=== PATIENT | male | born 1950 | race Caucasian/White ===

== ENCOUNTER 2023-10-23 08:57 | Outpatient (OUT) | payer BC, MEDICARE, SELFPAY ==
--- NOTE | 2023-10-23 09:07 | XR_ITS ---
The [address] [address] Patient Name: YAMINI BRANNON MRN: [id number] date: 1950 Sex: M Assigned Patient Location: LAB Current Patient Location: LAB Accession/Order Number: [id number] Exam Date: 10/23/2023 09:10 Report Date: 10/24/2023 09:10 At the request of: BILL TOLENTINO Procedure: XR shoulder RT min 2V PROCEDURE: XR shoulder RT min 2V COMPARISON: None. HISTORY: Right Pain In Shoulder M25.511 FINDINGS: BONES:No acute fracture or dislocation. Glenohumeral joint space narrowing. Minimal degenerative change with marginal osteophyte formation. Moderate spondylosis of the spine SOFT TISSUES:Negative. No visible soft tissue swelling. EFFUSION:None visible. OTHER: Negative. XR/XR shoulder RT min 2V IMPRESSION: Mild degenerative changes with glenohumeral joint space narrowing Electronically authenticated by: THOMAS MOTT Date: 10/24/2023 09:10
--- NOTE | 2023-10-23 09:08 | US_ITS ---
The [address] [address] Patient Name: YAMINI BRANNON MRN: [id number] date: 1950 Sex: M Assigned Patient Location: LAB Current Patient Location: Accession/Order Number: [id number] Exam Date: 10/23/2023 09:20 Report Date: 10/24/2023 07:46 At the request of: BILL TOLENTINO Procedure: US thyroid EXAMINATION: US thyroid HISTORY: Thyroid Nodule E04.1 COMPARISON: 12/05/2022 TECHNIQUE: Sonographic images of the thyroid gland were obtained. FINDINGS: The right thyroid lobe measures 4.7 x 1.1 x 1.5 cm 2 focal nodules. The isthmus is thickened measuring 6.8 mm, heterogeneous. No focal nodule. The left thyroid lobe measures 5.5 x 2.8 x 2.3 cm. Heterogeneous echotexture with 3 focal nodules. The 2 most suspicious nodules: Nodule 1:1.8 x 1.8 x 1.1 cm. Solid, hypoechoic, wide, ill-defined margins, no calcifications. TR 4 Nodule 2: Left thyroid lobe. 2.4 x 2.3 x 1.6 cm solid, isoechoic, wide, smooth margins, no calcifications. TR 3 US/US thyroid IMPRESSION: Multinodular thyroid gland, stable TI-RADS: The [employer] TI-RADS committee's white paper recommendations for thyroid lesions classified as TR4 (moderately suspicious) are listed below: > 1.0 cm. Follow-up ultrasound in 1, 2, 3, and 5 years. > 1.5 cm. FNA. J. Am Freddy Radiol 2017;14:587-595. Electronically authenticated by: THOMAS MOTT Date: 10/24/2023 07:46
[2023-10-23 09:56] LABS: Anion Gap 10.2; BUN Creatinine Ratio 11.1; Calcium 8.3 mg/dL (8.5-10.1); Carbon Dioxide 30.8 mmol/L (21.0-32.0); Chloride 107 mmol/L (98-107); Chol HDL Ratio 2.8; Cholesterol 145 mg/dL (<=200); Estimated GFR (African America >60 (>=60); Estimated GFR (Non-African Ame >60 (>=60); Glucose 99 mg/dL (74-106); HDL Cholesterol 51 mg/dL (40-60); Sodium 144 mmol/L (136-145); Thyroid Stimulating Hormone 1.262 uIU/mL (0.358-3.740); Triglycerides 70 mg/dL (<=150)
[2023-10-23 10:20] LABS: Prostate Specific Antigen Scrn 0.38 ng/mL (<=4.00)
== END 2023-10-23 08:58 | disposition home or self-care (01) ==
LOC: LAB 08:57
PROVIDERS: PCP Internal Medicine; Visit Provider Internal Medicine
DX: E04.1 Nontoxic single thyroid nodule (principal); M25.511 Pain in right shoulder; E78.00 Pure hypercholesterolemia, unspecified; I10 Essential (primary) hypertension; Z12.5 Encounter for screening for malignant neoplasm of prostate
CPT/HCPCS: 36415; 73030; 76536; 80048; 80061; 84443; G0103

== ENCOUNTER 2024-10-27 07:57 | Outpatient (OUT) | payer OTHER, SELFPAY ==
--- NOTE | 2024-10-27 08:00 | US_ITS ---
The [address] [address] Patient Name: YAMINI BRANNON MRN: [id number] date: 1950 Sex: M Assigned Patient Location: US Current Patient Location: US Accession/Order Number: [id number] Exam Date: 10/27/2024 08:05 Report Date: 10/27/2024 11:14 At the request of: BILL TOLENTINO Procedure: US thyroid EXAMINATION: US thyroid HISTORY: Thyroid Nodule COMPARISON: Ultrasound thyroid 10/23/2023 FINDINGS: RIGHT LOBE: Enlarged heterogeneous containing a 12 mm TR 3 nodule within superior pole and a 5 mm TR 4 nodule within mid body. Lobe size: 5.2 x 1.4 x 1.5 cm LEFT LOBE: Enlarged, heterogeneous containing a 2.4 cm TR 3 nodule within inferior pole. Within the superior pole and mid body is a 1.7 cm and a 1.6 cm benign-appearing TR 2 nodule. Lobe size: 6.8 x 2.8 x 2.0 cm ISTHMUS: Heterogeneous and abnormally thickened. Thickness: 8 mm US/US thyroid IMPRESSION: 1. Enlarged slightly heterogeneous thyroid gland; nonspecific. 2. Stable TR 3 and TR 2 nodules bilaterally. Consider follow-up imaging in 1 year. TR3 (mildly suspicious): > 1.5 cm, follow-up ultrasound in 1, 3, and 5 years. > 2.5 cm, fine needle aspiration. TI-RADS 2: Benign nodules. Noticeably benign pattern (0% risk of malignancy) Electronically authenticated by: ERIS CHAPMAN Date: 10/27/2024 11:14
[2024-10-27 09:20] LABS: Basophils Absolute Auto 0.1 10^3/uL (0.0-0.1); Basophils Percent Auto 0.9 % (0.2-2.0); Eosinophils Absolute Auto 0.2 10^3/uL (0.0-0.7); Eosinophils Percent Auto 3.1 % (0.9-7.0); Hematocrit 47.5 % (42.0-54.0); Hemoglobin 16.1 g/dL (14.0-18.0); Immature Granulocytes Abs Auto 0.01 10^3/uL (0.00-0.03); Immature Granulocytes Pct Auto 0.2 % (0.0-0.5); Lymphocytes Absolute Auto 1.4 10^3/uL (1.2-3.8); Lymphocytes Percent Auto 24.5 % (20.5-60.0); Mean Corpuscular HGB Conc 33.9 g/dL (29.9-35.2); Mean Corpuscular Hemoglobin 30.4 pg (25.9-34.0); Mean Corpuscular Volume 89.6 fL (80.0-94.0); Mean Platelet Volume 9.9 fL (9.5-13.5); Monocytes Absolute Auto 0.4 10^3/uL (0.3-0.8); Monocytes Percent Auto 7.1 % (1.7-12.0); Neutrophils Absolute Auto 3.7 10^3/uL (1.4-6.5); Neutrophils Percent Auto 64.2 % (43.0-75.0); Platelet Count 198 10^3/uL (150-450); White Blood Count 5.8 10^3/uL (4.0-11.0)
[2024-10-27 10:51] LABS: Alanine Aminotransferase 20 U/L (16-63); Albumin Globulin Ratio 1.1; Albumin Level 3.5 g/dL (3.4-5.0); Alkaline Phosphatase 95 U/L (46-116); Anion Gap 12.7; Aspartate Amino Transferase 12 U/L (15-37); BUN Creatinine Ratio 10.9; Bilirubin Total 0.9 mg/dL (0.2-1.0); Calcium 8.7 mg/dL (8.5-10.1); Carbon Dioxide 29.3 mmol/L (21.0-32.0); Chloride 108 mmol/L (98-107); Chol HDL Ratio 2.3; Cholesterol 135 mg/dL (<=200); Estimated GFR (African America >60 (>=60 mL/min/1.73m^2); Estimated GFR (Non-African Ame >60 (>=60 mL/min/1.73m^2); Globulin 3.3 g/dL; Glucose 114 mg/dL (74-106); HDL Cholesterol 59 mg/dL (40-60); LDL Cholesterol Calculated 61.8 mg/dL; Sodium 146 mmol/L (136-145); Thyroid Stimulating Hormone 1.369 uIU/mL (0.358-3.740); Total Protein 6.8 g/dL (6.4-8.2); Triglycerides 71 mg/dL (<=150); VLDL CHOLESTEROL 14.2 mg/dL
[2024-10-27 11:04] LABS: Prostate Specific Antigen Scrn 0.52 ng/mL (<=4.00)
== END 2024-10-27 07:58 | disposition home or self-care (01) ==
LOC: US 07:57
PROVIDERS: PCP Internal Medicine; Visit Provider Internal Medicine
DX: Z12.5 Encounter for screening for malignant neoplasm of prostate (principal); I10 Essential (primary) hypertension; E78.00 Pure hypercholesterolemia, unspecified; E04.1 Nontoxic single thyroid nodule; R00.1 Bradycardia, unspecified
CPT/HCPCS: 36415; 76536; 80053; 80061; 84443; 85025; 93246; G0103

== ENCOUNTER 2025-05-17 09:49 | Outpatient (OUT) | payer OTHER, SELFPAY ==
--- NOTE | 2025-05-17 | XR_ITS ---
The [address] [address] Patient Name: YAMINI BRANNON MRN: [id number] date: 1950 Sex: M Assigned Patient Location: [facility] Current Patient Location: [facility] Accession/Order Number: [id number] Exam Date: 05/17/2025 10:40 Report Date: 05/17/2025 10:50 At the request of: BILL TOLENTINO DO Procedure: XR ribs RT min 3V w CXR1V CLINICAL HISTORY: Pain of inferior left scapula M89.8X1. Right lower lateral rib pain under the breasts or 10 days R07.89. No reported injury. LEFT SCAPULA - 2 views. COMPARISON: None AP and Y views were obtained. There is osteopenia. No fracture, dislocation or bony destruction is identified. Minor hypertrophy is visualized at the acromioclavicular joint and sclerosis at the greater tuberosity. No soft tissue abnormalities are seen. XR/XR scapula LT IMPRESSION: NO ACUTE BONY FINDINGS. PA CHEST WITH RIGHT RIBS: COMPARISON: 11/11/2022 chest x-ray and 10/23/2023 right shoulder. The chest film shows no infiltrate, effusion or pneumothorax. The cardiac, hilar and mediastinal silhouettes are within normal limits. No vascular congestion is seen. There is dextroscoliotic curvature and endplate spurring at the spine. AP and both oblique views of the right ribs show osteopenia. No acute displaced rib fractures or bony destruction are seen. IMPRESSION: NO ACUTE FINDINGS. Impression dictated by: Nicole Villanueva M.D. 05/17/2025 10:50 AM Dictation Location: [place] [address] Electronically authenticated by: [id number] Y Date: 05/17/2025 10:50
--- NOTE | 2025-05-17 | XR_ITS ---
The [address] [address] Patient Name: YAMINI BRANNON MRN: [id number] date: 1950 Sex: M Assigned Patient Location: [facility] Current Patient Location: [facility] Accession/Order Number: [id number] Exam Date: 05/17/2025 10:40 Report Date: 05/17/2025 10:50 At the request of: BILL TOLENTINO DO Procedure: XR ribs RT min 3V w CXR1V CLINICAL HISTORY: Pain of inferior left scapula M89.8X1. Right lower lateral rib pain under the breasts or 10 days R07.89. No reported injury. LEFT SCAPULA - 2 views. COMPARISON: None AP and Y views were obtained. There is osteopenia. No fracture, dislocation or bony destruction is identified. Minor hypertrophy is visualized at the acromioclavicular joint and sclerosis at the greater tuberosity. No soft tissue abnormalities are seen. XR/XR ribs RT min 3V w CXR1V IMPRESSION: NO ACUTE BONY FINDINGS. PA CHEST WITH RIGHT RIBS: COMPARISON: 11/11/2022 chest x-ray and 10/23/2023 right shoulder. The chest film shows no infiltrate, effusion or pneumothorax. The cardiac, hilar and mediastinal silhouettes are within normal limits. No vascular congestion is seen. There is dextroscoliotic curvature and endplate spurring at the spine. AP and both oblique views of the right ribs show osteopenia. No acute displaced rib fractures or bony destruction are seen. IMPRESSION: NO ACUTE FINDINGS. Impression dictated by: Nicole Villanueva M.D. 05/17/2025 10:50 AM Dictation Location: [place] [address] Electronically authenticated by: [id number] Y Date: 05/17/2025 10:50
--- OUTSIDE RECORDS SUMMARY | 2025-05-17 05:41 | XMS_ITS | Continuity of Care Document ---
Author Organization [facility] Address [address] [place] [address] Phone Care Team Providers Care Oyster Worker Name Role Phone Rick Hernandez DO Primary Care Provider Rick Hernandez DO Attending Provider [phone] Care Teams Patient Care Team Team Status: Active Member Role Status Dates Rick Hernandez DO Primary Care Provider Active Patient Care Team Team Status: Inactive Member Role Status Dates Rick Hernandez DO Primary Care Provider Active Start: May 17, 2025 End: May 17, 2025 Rick Hernandez DO Attending Provider Active Sta rt: May 17, 2025 End: May 17, 2025 Chief Complaint and Reason for Visit Chief Complaint Admit Date chest pain May 17, 2025 9:13a m Reason for Visit Admit Date Chest pain May 17, 2025 9:13a m H/O carotid endarterectomy May 17 9:13am Hypercholesterolemia May 17, 2025 9:13 am Hypertension May 17, 2025 9:13a m Nicotine addiction May 17, 2025 9:13a m NSVT (nonsustained ventricular tachycard ia) May 17, 2025 9:13am Allergies, Adverse Reactions, Alerts Allergen Type Severity Reaction Last Updated Verified Status No Known Allergies Allergy Unknown May 17, 2025 9:19am Yes Active Social History Smoking Status Status Start Date End Date Date of Observa tion Ex-smoker (finding) October 15, 2023 2:35pm Observation Status Observation Response Date of Response Legal Sex Male (finding) Sex Assigned At Male 1950 Family History Relationship Condition Age at Onset Recorded Date/T ronnie father Unknown Hypertension Unknown mother Unknown Malignant neoplasm of breast Unknown Malignant neoplasm Unknown Problems Active Problems Medical Problem Onset Date Status Comments Nicotine addiction Unknown Active Primary insomnia Unknown Active Screening PSA (prostate spec ific antigen) Unknown Active PSA: 0.38 - 10/2024, 0.52 - 10/2024 Carotid stenosis Unknown Active CEA left , right 2017 Thyroid nodule Unknown Active s/p FNA in 29 09,s/p FNA in 2022 (left inferior lobe nodule: 2.4x2.3cm TR4 - path non-diagnostic)US: right 12mm TR3, 5mm TR4, left 2.4cm TR3, 1.7cm and 1.6cm TR2 - 10/2024 (recheck 1 year) Pain of left scapula Unknown Active Bradycardia Unknown Active Chest wall pain Unknown Active Hypercholesterolemia Unknown Active H/O carotid endarterectomy 2016 Active L eft CEA w/ dacron patch angioplasty Chest pain Unknown Active Hypertension Unknown Active NSVT (nonsustained ventricul ar tachycardia) Unknown Active Holter: 10/2024- NSR w/ average rate 77 bpm- fastest rate 135 bpm and slowest rate 54 bpm- VE burden 38% (couplets, bigeminy, trigeminy)- NSVT 4 episodes of 3 beat VTEcho: 04/2022- LVEF 65%, normal RV size/function Medications Medication Status Dose Units Route Directions Qty Days St art Date Stop Date End Date Instructions Adherence Atorvastati n 80 mg tablet Discont inued 80 MG PO Daily February 23, 2024 1:01pm March 09, 2025 7:38a m Losartan 100 mg tablet Discont inued 0 .ROUTE .COMPLEX Augobe r 2023 6:18pm Dece izaiah 2023 12:21 pm TAKE 1 TABLET BY MOUTH EVERY DAY Metoprolol Succinate 25 mg tablet extended release 24 hr Active 25 MG PO Daily y 2024 1:00am Complies with drug therapy Atorvastati n 80 mg tablet Active 0 .ROUTE .COMPLEX March 09, 2025 7:38am TAKE 1 TABLET BY MOUTH DAILY Complies with drug therapy Amlodipine 5 mg tablet Active 0 .ROUTE .COMPLEX March 13, 2025 2:58pm TAKE 1 TABLET BY MOUTH DAILY Complies with drug therapy Losartan 50 mg Tablet Discont inued 50 MG PO Daily Decemb er 2017 1:00am Octob er 2023 6:19p m Atorvastati n (Lipitor) 80 mg Tablet Discont inued [address] [facility] er 2017 1:00am February 20, 2024 12:17 pm Aspirin (Aspirin Low Dose) 81 mg Tablet,Libertad yed Release (Dr/Ec) Active [address] [facility] er 2017 1:00am Complies with drug therapy Metoprolol Tartrate 50 mg Tablet Discont inued [address] [facility] er 2017 1:00am [facility] izaiah 2017 2:44p m Mv-Min-Foli c-K1-Lycope n-Lutein (Men 50 Plus Multivitami n) 300-600-300 mcg Tablet Active [address] [facility] er 2017 1:00am Complies with drug therapy Metoprolol Succinate 50 mg tablet extended release 24 hr Discont inued 50 MG PO Daily [facility] 2017 1:00am [facility] 2023 11:55 am Atorvastati n 80 mg tablet Discont inued 80 MG PO Daily February 20, 2024 12:00a m February 20, 2024 1:24p m Atorvastati n 80 mg tablet Discont inued 80 MG PO Daily 30 30 February 20, 2024 1:24pm February 23, 2024 1:01p m Tamsulosin (Flomax) 0.4 mg capsule Active 0.4 MG PO Daily [facility] 2023 1:00am Complies with drug therapy Zolpidem 10 mg tablet Active 10 MG PO Daily at bedtime [facility] 2023 1:00am Complies with drug therapy Amlodipine 5 mg tablet Discont inued 5 MG PO Daily 30 30 [facility] 2023 1:00am March 13, 2025 2:58p m Telmisartan 80 mg tablet Active 80 MG PO Daily 90 90 [facility] 2023 1:00am Complies with drug therapy Immunizations Immunization Event Date Not Given Reason Dose Number Financial Planning Assistant Lot Number Vaccine Information Statement (VIS) Detail Administration Location COVID-19 Ad26.COV2.S ([employer]) September 29, 2021 COVID-19 Carlo Slade ([employer]) December 13, 2020 diphtheria, TT and pertussis vaccine November 11, 2022 Pneumococcal Polysacc. Vaccine, 23 valent October 09, 2018 Medical Equipment Device Date Implanted Device Details GRAFT PATCH [id number] X 3 October 29, 2018 Vital Signs Vital Reading Result Reference Range Collection Date/Time Height 75 [in_i] May 17, 2025 9:22am Weight 97.63 kg May 17, 2025 9:22am Heart Rate 64 /min 60-100 May 17, 2025 9:22am Respiratory rate 12 /min 12-24 May 17, 025 9:22am BP Systolic 147 mm[Hg] 100-140 May 17, 2025 9:22am BP Diastolic 83 mm[Hg] 60-100 May 17, 2025 9:22am BMI (Body Mass Index) 26.9 kg/m2 May 172024 9:22am Advance Directives Advance Directive Response Recorded Date/ Time Advance Directives No September 15, 2018 2:31pm Insurance Providers Guarantor Kristian Spence Address [address] [place] [phone] Contact Info. Home Phone: Payer Policy Id Subscriber's Name Subscriber Id Effectiv e Date Expiration Date MMO [id number] [employer] [id number] [employer] [facility] [id number] Kristian Spence [id number] [employer] [id number] Kristian Spence [id number] Encounters Encounter Location(s) Arrival/Admit Date Discharge/Depart Date Provider(s) Departed Physician/Prov ider Office Visit -[facility] May 17, 2025 9:13am May 17, 2025 9:41am Rick Hernandez , DO Recent Diagnosis Onset Date Admit Date Chest pain Unknown May 17, 2025 9 :13am H/O carotid endarterectomy 2015May 17, 2025 9:13am Hypercholesterolemia Unknown May 17 025 9:13am Hypertension Unknown May 17, 2025 9 :13am Nicotine addiction Unknown May 17 9:13am NSVT (nonsustained ventricular tachycardia) Unkn own May 17, 2025 9:13am Assessments Diagnosis Onset Date Resolution Status Admit Date Chest pain acute May 17, 2025 9:13am H/O carotid endarterectomy 2016 acute May 17, 2025 9:13am Hypercholesterolemia acute May 17, 2025 9:13am Hypertension acute May 17 9:13am Nicotine addiction acute May 172024 9:13am NSVT (nonsustained ventricul ar tachycardia) acute May 17, 2025 9:13am Plan of Treatment Author Rick Hernandez [facility] Authored May 16, 2025 10:26 pm I have instructed this patie nt on a low fat, high fiber diet and exercise. I have discussed the primary and secondary prevention benefits attributed to lowering LDL cholesterol. I have also discussed the medical treatment of elevated cholesterol, which is based on the 10 year ASCVD risk. I have instructed this patient to consume a healthy, low-fat, low-salt diet. I have also encouraged them to continue exercise with weight loss to achieve/maintain a BMI < 30. I have instructed this patient on the correct procedure for obtaining home BP measurements: - rest for 5 minutes w/o talking. - positioned w/ feet on floor and arms supported. - average best 2/3 readings w/ goal < 135/85. - update office w/ home readings in 2 weeks. d/c Losartan and begin Telmisartan Initiate Amlodipine 2.5mg This patient has been encouraged to continue abstinence. They are aware of the hazards associated with tobacco use, including but not limited to respiratory infections, vascular disease and cancers. Scheduled for yearly LDCT chest for lung cancer screening is recommended. Holter: 10/2024 - NSR w/ average rate 77 bpm - fastest rate 135 bpm and slowest rate 54 bpm - VE burden 38% (couplets, bigeminy, trigeminy) - NSVT 4 episodes of 3 beat VT Echo: 04/2022 - LVEF 65%, normal RV size/function No s/s of acute, focal neurologic deficits. I have reviewed stroke symptoms and instructed them to go to the ER for any suspicious symptoms. They have been instructed to continue secondary preventive measures. Continue secondary prevention measures. Future Tests Future scheduled test information is unavailable Pending Tests Test Name Ordered Date Scheduled Date XR ribs RT min 3V w CXR1V* May 17, 2025 9:35am XR scapula LT* May 17, 2025 9:35am Future Visits Future appointment information is unavailable Referrals to Other Providers Referral information is unavailable Future Procedures Future procedure information is unavailable Future Medications Future medication information is unavailable Patient Instructions Patient instructions are unavailable
--- OUTSIDE RECORDS SUMMARY | 2025-05-17 09:53 | XMS_ITS | Clinical Summary ---
Author Organization [facility] Address [address] [place] [address] Care Team Providers Care Stationary Engineer Supervisor Name Role Phone Unavailable Primary Care Provider Unavailabl e Social History Tobacco Use Types Packs/Day Years Used Date Smoking Tobacco: Never Assessed Sex and Gender Information Value Date Recorded Sex Assigned at Not on file Legal Sex Male 8:34 PM EDT Gender Identity Not on file Sexual Orientation Not on file Last Filed Vital Signs Vital Sign Reading Time Taken Comments Blood Pressure 124/62 12/15/2019 12:00 PM EST Pulse - - Temperature - - Respiratory Rate - - Oxygen Saturation - - Inhaled Oxygen Concentration - - Weight 108 kg (239 lb) 12/15/2019 12:00 PM EST Height 190.5 cm (6' 3 ) 12/15/2019 12:00 PM EST Body Mass Index 29.87 12/15/2019 12:00 PM EST Plan of Treatment Not on file
== END 2025-05-17 09:50 | disposition home or self-care (01) ==
LOC: RAD 09:51
PROVIDERS: PCP Internal Medicine; Visit Provider Internal Medicine
DX: R07.89 Other chest pain (principal); M89.8X1 Other specified disorders of bone, shoulder
CPT/HCPCS: 71101; 73010

== ENCOUNTER 2025-09-16 15:03 | Outpatient (OUT) | payer OTHER, SELFPAY ==
--- NOTE | 2025-09-16 | XR_ITS ---
The [address] [address] Patient Name: YAMINI BRANNON MRN: [id number] date: 1950 Sex: M Assigned Patient Location: [facility] Current Patient Location: [facility] Accession/Order Number: [id number] Exam Date: 09/16/2025 15:13 Report Date: 09/16/2025 16:30 At the request of: BILL TOLENTINO DO Procedure: XR chest 2V PA AND LATERAL CHEST: CLINICAL HISTORY: Persistent cough COMPARISON: CT chest 11/11/2021 FINDINGS: Unremarkable cardiomediastinal silhouette. Lungs clear. No effusion or pneumothorax. Multilevel bony ankylosis of the thoracic spine. XR/XR chest 2V IMPRESSION: NO ACUTE CARDIOPULMONARY ABNORMALITY. Impression dictated by: Kendall Alvarado M.D. 09/16/2025 4:30 PM Dictation Location: [place] [address] Electronically authenticated by: [id number] Y Date: 09/16/2025 16:30
--- OUTSIDE RECORDS SUMMARY | 2025-09-16 09:58 | XMS_ITS | Continuity of Care Document ---
Author Organization [facility] Address [address] [place] [address] Phone Care Team Providers Care Master Barber Name Role Phone Rick Hernandez DO Primary Care Provider Rick Hernandez DO Attending Provider [phone] Care Teams Patient Care Team Team Status: Active Member Role/Relationship Status Dates Rick Hernandez DO Primary Care Provider Active Patient Care Team Team Status: Inactive Member Role/Relationship Status Dates Rick Hernandez DO Primary Care Provider Active Start: September 16, 2025 End: September 16enjasagar Hernandez DOAttending ProviderActiveStart: September 16, 2025 End: September 16, 2025 Chief Complaint and Reason for Visit Chief Complaint Admit Date cough x 1 month September 16, 2025 1 :58pm Reason for Visit Admit Date Hypertension September 16, 2025 1 :58pm Nicotine addiction September 16, 2025 1 :58pm Allergies, Adverse Reactions, Alerts Allergen Type Severity Reaction Last Updated Verified Status No Known Allergies Allergy Unknown September 16, 2025 2:16pmYesActive Social History Smoking Status Status Start Date End Date Date of Observa tion Ex-smoker (finding) October 15, 2023 2:35pm Observation Status Observation Response Date of Response Legal Sex Male (finding) Sex Assigned At BirthMaleJuly 1949 Family History Relationship Condition Age at Onset Recorded Date/T ronnie father Unknown HypertensionUnknownmotherDeceasedUnknownMalignant neoplasm of breastUnknown Malignant neoplasmUnknown Problems Active Problems Problem Diagnosis/Recorded Date Onset Date Status C omments Nicotine addiction October 17, 2024 3:02pm Unknown Ac tive Primary insomniaDecember 2023 11:17amUnknownActiveScreening PSA (prostate specific antigen)October 17, 2024 3:02pmUnknownActivePSA: 0.38 - 10/2024, 0.52 - arotid stenosisDecember 2023 3:02pmUnknownActiveCEA left 2015, right 2018Thyroid noduleDecember 2023 3:02pmUnknownActives/p FNA in 2010,s/p FNA in 2022 (left inferior lobe nodule: 2.4x2.3cm TR4 - path non-diagnostic)US:right 12mm TR3, 5mm TR4, left 2.4cm TR3, 1.7cm and 1.6cm TR2 - 10/2024 (recheck 1 year)Pain of left scapulaJuly 2024 8:36amUnknownActive BradycardiaDecember 2023 11:30amUnknownActiveChest wall painJuly 2024 8:36amUnknownActiveHypercholesterolemiaDecember 2023 3:01pmUnknownActiveH/O carotid endarterectomyJuly 2024 9:07ky6595EdfhrtVmpl CEA w/ dacron patch angioplastyChest painJuly 2024 9:23pmUnknownActiveHypertensionDecember 2023 3:02pmUnknownActivePersistent coughNovember 2024 2:54pmUnknownActive NSVT (nonsustained ventricular tachycardia)May 16, 2025 9:14pmUnknownActive Holter: 10/2024- NSR w/ average rate 77 bpm- fastest rate 135 bpm and slowest rate 54 bpm- VE burden 38% (couplets, bigeminy, trigeminy)- NSVT 4 episodes of 3 beat VTEcho: 04/2022- LVEF 65%, normal RVsize/function Medications Medication Status Dose Units Route Directions Qty Days Refills S tart Date Stop Date End Date Reason(s) Instructions Adherence Atorvastatin 80 mg tablet Discontinued 80 MG PO Daily 90 90 3 February 23, 2024 12:01pm March 09, 2025 6:38amLosartan 100 mg tabletDiscontinued0.ROUTE.WZSDCIS456 September 06, 2024 5:18pmDecember 2023 11:21amTAKE 1 TABLET BY MOUTH EVERY DAYMetoprolol Succinate 25 mg tablet extended release 24 uqFfvjsp59RZTKKtmsa4414 5Jan2024 12:00amComplies with drug therapyAtorvastatin 80 mg tablet Active0.ROUTE.QROZZYN962Ulxvo 30th, 2025 6:38amTAKE 1 TABLET BY MOUTH DAILY Complies with drug therapyAmlodipine 5 mg tabletDiscontinued0.ROUTE.WJNDOZY774 March 13, 2025 1:58pmOctober 2024 7:54amTAKE 1 TABLET BY MOUTH DAILY Telmisartan 80 mg fgwnzdIodcyo34LPXZGdwbi89146Mifrglf 2024 7:54amComplies with drug therapyAmlodipine 5 mg vttmhqCiczop8EAILFdcxc14992Vfhsamx 2024 7:54amComplies with drug therapyLosartan 50 mg QizfimCcppshhehvjx15LMGIBzuxq October 23, 2018 12:00amOctober 2023 5:19pmHTNAtorvastatin (Lipitor) 80 mg QdyudmGvuyexaledfr86QFIIYmuoiVhqhjfni 2017 12:00amApril 2023 11:17amHyperlipidemiaAspirin (Aspirin Low Dose) 81 mg Tablet,Delayed Release (Dr/Ec)Nwfxgf41JRMENdbntMnjsyhkc 14th, 2018 12:00amCVA preventionComplies with drug therapyMetoprolol Tartrate 50 mg WbkwacGirvxabqmiye50DLTQGminiSfkfnqec 2017 12:00amce2017 1:88rzXDDJg-Fhh-Jldmi-K9-Gdprnau-Uemzph (Men 50 Plus Multivitamin) 300-600-300 mcg NgdmrmFwofqj9HXEDOOwerbLnwasbwd 2017 12:00amsupplementComplies with drug therapyMetoprolol Succinate 50 mg tablet extended release 24 siPsiuguorkavt36HRRPSzwfqOxlkohil 2017 12:00am October 19, 2024 10:55amAtorvastatin 80 mg grdpvuLavcqtmvnreq51SEANIjfczLdjaf 11th, 2024 11:00pmApril 2023 12:24pmAtorvastatin 80 mg tabletDiscontinued 31JFFXJtwas50250Whqhs 2023 12:24pmApril 2023 12:01pmTamsulosin (Flomax) 0.4 mg capsuleActive0.4MGPODailyDeceer 2023 12:00amComplies with drug therapyZolpidem 10 mg fhcfhsQxcwxlppluxg55DDTYZhdoa at lnvccvl49984 October 19, 2024 12:00amNovember 2024 2:48pmPrimary insomnia Primary insomniaAmlodipine 5 mg ltkglqGgjvxbbewvow6LQDCHfrmb84066Runnojhj 10th, 2024 12:00amMay 2024 1:58pmTelmisartan 80 mg ykgknoEsokodylpzsy77OGMBIlovn 03712Uxqjbdzw 10th, 2024 12:00amOctober 2024 7:54amSildenafil 100 mg vqjbqqOcdcdr811UXTEIqcrd as needed for sexual qahfvnvh2080Zwkeausq 7th, 2025 12:00amadminister 30 minutes to 4 hours before activityComplies with drug therapyZolpidem 10 mg gfqmsnHrixpr48OQOJInbao at nkkvwic12740Rumcgwnb2024 2:46pmPrimary insomnia Primary insomniaComplies with drug therapy Immunizations Immunization Event Date Not Given Reason Dose Number Prisoner Classification Interviewer Lot Number Reason(s) Given Vaccine Information Statement (VIS) Detail Administration Location COVID-19 Ad26.COV2.S (Comsenz) September 29 COVID-19 mRNA, Comirnaty (Crescentrating)December 13iphtheria, TT and pertussis vaccineJanuary neumococcal Polysacc. Vaccine, 23 valentNov2017 Medical Equipment Device Date Implanted Device Details GRAFT PATCH [id number] X 3 October 29, 2018 Vital Signs Vital Reading Result Reference Range Collection Date/Time Height 75 [in_i] September 16, 2025 2:31clIvluio16.18 kgNov2024 2:18pmHeart Rate71 /coc75-423LwioowbzSeptember 16, 2025 2:18pmRespiratory rate12 /pnu42-60ZjyzfiowSeptember 16, 2025 2:18pmBP Ftjbbbdk158 mm[Hg]100-140September 16, 2025 2:18pmBP Edplokkdp44 mm[Hg]60-100September 16, 2025 2:18pmBMI (Body Mass Index)26.7 kg/g2BsymozwmSeptember 16, 2025 2:18pm Advance Directives Advance Directive Response Recorded Date/ Time Advance Directives No September 15, 2018 1:31pm Insurance Providers Guarantor Kristian Spence Address [address] [place] [address]Xxcfqib Info.Home Phone: Coverage Status Update:2024 Payer Group Member ID Coverage Type Subscriber Relationship to Subscriber Effective Date Expiration Date MMO Id: [id number] [place] Id: [id number] [address] [place] [address] Home Phone: [employer] MCR PFFS [id number] [place] Id: [id number] [address] [place] [address] Home Phone: Email: [email or web address] Id: [id number] [place] Id: [id number] [address] [place] [address] Home Phone: Email: [email or web address] Encounters Encounter Location(s) Arrival/Admit Date Discharge/Departure Date Discharge/Departure Disposition Provider(s) Departed Physician/ Provider Office Visit -[facility] September 16, 2025 1:58pm September 16, 2025 2:56pm Discharged to home care or self care (routine discharge) Rick Hernandez , Recent Diagnosis Onset Date Admit Date Hypertension Unknown September 16 1:58pm Nicotine addiction Unknown September 16, 2025 1:58pm Assessments Diagnosis Onset Date Resolution Status Admit Date Hypertension acuteSeptember 16, 2025 1:58pmNicotine addictionacuteSeptember 16, 2025 1:58pm Plan of Treatment Author [facility] HospitalAuthofrench [facility] centerSeptember 14, 2025 7:01amI have instructed this patient to consume a healthy, low-fat, low-salt diet. I have also encouraged them to continue exercise with weight loss to achieve/maintain a BMI < 30. I have instructed this patient on the correct procedure for obtaining home BP measurements:? - rest for 5 minutes w/o talking. [...] chest for lung cancer screening is recommended. Future Tests Future scheduled test information is unavailable Pending Tests Test Name Ordered Date Scheduled Date XR chest 2V* September 16, 2025 2:52pm Future Visits Future appointment information is unavailable Future Procedures Future procedure information is unavailable Future Medications Future medication information is unavailable Patient Instructions Patient instructions are unavailable
--- OUTSIDE RECORDS SUMMARY | 2025-09-16 15:07 | XMS_ITS | Clinical Summary ---
Author Organization [facility] Address [address] [place] [address] Care Team Providers Care Lap Winder Name Role Phone Unavailable Primary Care Provider Unavailabl e Social History Tobacco UseTypesPacks/DayYears UsedDateSmoking Tobacco: Never AssessedSex and Gender InformationValueDate RecordedSex Assigned at BirthNot on fileLegal Sex Male03/10/2023 8:34 PM EDTGender IdentityNot on fileSexual OrientationNot on file Last Filed Vital Signs Vital SignReadingTime TakenCommentsBlood Rgrigvcc673/6202 12:00 PM EST Pulse--Temperature--Respiratory Rate--Oxygen Saturation--Inhaled Oxygen Concentration--Avpttc949 kg (239 lb)12/15/2019 12:00 PM BSPVbaump296.5 cm (6' 3 )12/15/2019 12:00 PM ESTBody Mass Index29.8712/15/2019 12:00 PM EST Plan of Treatment Not on file
--- OUTSIDE RECORDS SUMMARY | 2025-09-16 15:07 | XMS_ITS | Clinical Summary ---
Author Organization [facility] Address [address] [place] [address] Care Team Providers Care Body Builder Apprentice Name Role Phone Unavailable Primary Care Provider Unavailabl e Social History Tobacco UseTypesPacks/DayYears UsedDateSmoking Tobacco: Never AssessedUT Safety & EnvironmentAnswerDate RecordedFear of Current or Ex-PartnerNot on file 01/01/2024Emotionally AbusedNot on file01/01/2024hysically AbusedNot on file 01/01/2024Sexually AbusedNot on file01/01/2024hysically or Sexually AbusedNot on file01/01/2024Sex and Gender InformationValueDate RecordedSex Assigned at BirthNot on fileLegal PogXogh5905/30/2022 9:10 AM EDTGender IdentityNot on file Sexual OrientationNot on file Plan of Treatment Not on file
--- OUTSIDE RECORDS SUMMARY | 2025-09-16 15:09 | XMS_ITS | CCD ---
Author Organization [facility]iniSys[facility] Care Team Providers Care Chip Bin Conveyor Tender Name Role Phone DR CRYSTAL ANTHONY Consulting Unavailable BALL, DR KHAN Primary Care Unavailable KATKO, TRICE Hudson Admitting Unavailable KATKO, TRICE Hudson Attending Unavailable DILLON, MAUDE Consulting Unavailable GELBART, NATASHA Consulting Unavailable JESS, THOMAS Consulting Unavailable AALIYAH, CARLOS Attending Unavailable Zieber, DR Morrison Consulting Unavailable BALL, DR KHAN Primary Care Unavailable AALIYAH, CARLOS Admitting Unavailable AALIYAH, CARLOS Consulting Unavailable BALL, DR KHAN Primary Care Unavailable BALL, DR KHAN Consulting Unavailable BALL, DR KHAN Attending Unavailable BALL, DR KHAN Admitting Unavailable WEST, DR GUZMAN Consulting Unavailable BALL, DR KHAN Primary Care Unavailable BALL, DR KHAN Consulting Unavailable BALL, DR KHAN Attending Unavailable BALL, DR KHAN Admitting Unavailable NEFCY, MAULIK Consulting Unavailable BALL, DR KHAN Primary Care Unavailable BALL, DR KHAN Consulting Unavailable BALL, DR KHAN Attending Unavailable BALL, DR KHAN Admitting Unavailable David, Rick Unavailable Rick Hernandez DO Primary Care Provider Rick Hernandez DO Attending Provider Rick Hernandez Attending Unavailable David, Rick Primary Care Unavailable David, Rick Admitting Unavailable Ball DO, Rick Primary Care Provider Ball DO, Rick Attending Provider [phone] Allergies Allergy ClassificationReported Allergen(s)Allergy TypeDate of OnsetReaction(s) Facility (1 source)patient allergy list reviewed by nurse or physiciaPropensity to adverse hxfsqiuuh29-74-8748Vweonov:[employer] Other (1 source)Allergies ReconciledPropensity to adverse reactionsSt. Vincent Frankfort HospitalAlbeo Technologies Other Medications Current Medications MedicationDrug Class(es)DatesSig (Normalized)Sig (Original)amLODIPine 5 mg oral tablet (14 sources)Dihydropyridine Calcium Channel BlockerStart: 07-24-9217cqau 1 tablet by mouth once dailyAmlodipine 5 mg tablet Active 5 MG PO Daily 90 90 September 03, 2025 7:54am Complies with drug therapyStart: 03-13-2025 End: 56-67-6328fowe 1 tablet by mouth once dailyAmlodipine 5 mg tablet Discontinued 0 .ROUTE .COMPLEX 90 March 13, 2025 1:58pm September 03, 2025 7 :54am TAKE 1 TABLET BY MOUTH DAILYStart: 10-19-2024 End: 55-14-2917jcwf 1 tablet by mouth once dailyAmlodipine 5 mg tablet Discontinued 5 MG PO Daily October 19, 2024 12:00am March 13, 2025 1:58pmtake 1 tablet by mouth every twenty-four hoursamLODIPine Besylate 5 MG 1 tablet Orally Once a day Activeaspirin 81 mg delayed release oral tablet (3 sources)Platelet Aggregation Inhibitor, Nonsteroidal Anti-inflammatory Drug Start: 15-39-0184awuh 1 tablet by mouth once dailyAspirin (Aspirin Low Dose) 81 mg Tablet,Delayed Release (Dr/Ec) Active 81 MG PO Daily October 23, 2018 12:00am CVA prevention Complies with drug therapyatorvastatin 80 mg oral tablet (20 sources)HMG-CoA Reductase InhibitorStart: 31-96-4443wcxd 1 tablet by mouth once dailyAtorvastatin 80 mg tablet Active 0 .ROUTE .COMPLEX 90 March 09, 2025 6:38am TAKE 1 TABLET BY MOUTH DAILY Complies with drug therapyStart: 02-20-2024 End: 37-06-9703wnva 1 tablet by mouth once dailyAtorvastatin 80 mg tablet Discontinued 80 MG PO Daily February 20, 2024 12:24pm February 23, 2024 12:01pmStart: 10-23-2018 End: 75-14-8387Viqhqymzhgpm (Lipitor) 80 mg Tablet Discontinued 40 MG PO Daily October 23, 2018 12:00am February 20, 2024 11:17am Hyperlipidemiatake 1 tablet by mouth every twenty-four hoursLipitor 40 MG 1 tablet Orally Once a day Not-Taking/PRNFish Oils (12 sources)take 1 capsule by mouth once dailyFish Oil 1000 MG 1 capsule Orally Once a day Kcmkyn56 hr metoprolol succinate 25 mg extended release oral tablet (16 sources)beta-Adrenergic BlockerStart: 84-79-3192sdmd 1 tablet by mouth once dailyMetoprolol Succinate 25 mg tablet extended release 24 hr Active 25 MG PO Daily November 12:00am Complies with drug therapyStart: 10-29-2018 End: 42-73-1770khzp 1 tablet by mouth once dailyMetoprolol Succinate 50 mg tablet extended release 24 hr Discontinued 50 MG PO Daily October 12:00am October 19, 2024 10:55amStart: 10-23-2018 End: 85-33-0836vcfp 1 tablet by mouth once dailyMetoprolol Tartrate 50 mg Tablet Discontinued 50 MG PO Daily October 23, 2018 12:00am October 29, 2018 1:44pm HTNMultivitamins (12 sources)take 1 tablet by mouth once dailyMultivitamins 1 tablet Orally Once a day VkhstyIp-Wva-Gcqaq-R9-Didhcqo-Jpyqok (Men 50 Plus Multivitamin) 300-600-300 mcg Tablet (3 sources)Start: 64-80-9347zxkz 50-300 tablets by mouth once daily Ir-Dxw-Vtfog-D0-Lmftzww-Omeoja (Men 50 Plus Multivitamin) 300-600-300 mcg Tablet Active 1 TAB PO Daily October 23, 2018 12:00am supplement Complies with drug therapyStart: 99-14-2396rreo 50-300 tablets by mouth once dailyStart: 10-23-2018 take 50-300 tablets by mouth once rycacYc-Jig-Ekpzz-W9-Xtgskgx-Riqhco (Men 50 Plus Multivitamin) 300-600-300 mcg Tablet Active 1 TAB PO Daily October 23, 2018 1:00am Complies with drug therapyProbiotic (12 sources)Probiotic Orally Activesildenafil 100 mg oral tablet (13 sources)Phosphodiesterase 5 InhibitorStart: 16-08-3407Mmagknmgqe 100 mg tablet Active 100 MG PO Daily as needed for sexual activity September 16, 2025 12:00am administer 30 minutes to 4 hours before activity Complies with drug therapyStart: 44-02-4333gdxf 1 tablet by mouth once daily as neededSildenafil Citrate 100 MG 1 tablet as needed Orally Once a day PRN for 30 day(s) Nov, Activetadalafil 20 mg oral tablet (17 sources)Phosphodiesterase 5 InhibitorStart: 75-53-0745hplh 1 tablet by mouth every twenty-four hoursTadalafil 20 MG 1 tablet as needed Orally Once a day for 30 days Oct, Activetake 1 tablet by mouth every twenty-four hoursCialis 10 MG 1 tablet as needed Orally Once a day Activetamsulosin hydrochloride 0.4 mg oral capsule (8 sources)alpha-Adrenergic BlockerStart: 33-34-6286dlbd 1 capsule by mouth once dailyTamsulosin (Flomax) 0.4 mg capsule Active 0.4 MG PO Daily October 19, 2024 12:00am Complies withdrug therapytake 1 capsule by mouth every twenty-four hoursFlomax 0.4 MG 1 capsule Orally Once a day Activetelmisartan 80 mg oral tablet (4 sources)Angiotensin 2 Receptor BlockerStart: 10-19-2024 End: 76-38-6674awfh 1 tablet by mouth once dailyTelmisartan 80 mg tablet Active 80 MG PO Daily 90 90 September 03, 2025 7:54am Complies with drugtherapy tiZANidine 4 mg oral tablet (12 sources)Central alpha-2 Adrenergic Agonisttake 1 tablet by mouth every eight hourstiZANidine HCl 4 MG 1 tablet as needed Orally Three times a day Active zolpidem tartrate 10 mg oral tablet (4 sources)gamma-Aminobutyric Acid-ergic AgonistStart: 10-19-2024 End: 09-55-0397yiqh 1 tablet by mouth once daily at bedtimeZolpidem 10 mg tablet Active 10 MG PO Daily at bedtime 90 90 September 16, 2025 2:46pm Primary ins omnia Primary insomnia Complies with drug therapy Completed/Discontinued Medications MedicationDrug Class(es)DatesSig (Normalized)Sig (Original)Aspir-81 81 MG (12 sources)take 1 tablet by mouth once daily as neededAspir-81 81 MG 1 tablet Orally Once a day Not-Taking/PRNtake 1 tablet by mouth once dailyAspir-81 81 MG 1 tablet Orally Once a day Not-Takinglosartan potassium 100 mg oral tablet (18 sources)Angiotensin 2 Receptor BlockerStart: 09-06-2024 End: 23-28-6617vhsy 1 tablet by mouth once dailyLosartan 100 mg tablet Discontinued 0 .ROUTE .COMPLEX 90 September 06, 2024 5:18pm October 11:21am TAKE 1 TABLET BY MOUTH EVERY DAYStart: 10-23-2018 End: 37-91-4074xgwe 1 tablet by mouth once dailyLosartan 50 mg Tablet Discontinued 50 MG PO Daily October 23, 2018 12:00am September 06, 2024 5:1 9pm HTNtake 1 tablet by mouth once dailyLosartan Potassium 100 MG TAKE 1 TABLET BY MOUTH EVERY DAY Active Problems Active Problems Problem ClassificationProblemDateDocumented DateEpisodic/ChronicAcute bronchitis (1 source)Acute bronchitis; Translations: [Acute bronchitis due to other specified organisms]EpisodicCardiac dysrhythmias (17 sources)Ventricular premature depolarization; Translations: [Multiple premature ventricular complexes]Onset: 041242-67-1432BnnctpaZmmxvri on above:Holter: 10/2024- NSR w/ average rate 77 bpm- fastest rate 135 bpm and slowest rate 54 bpm- VE burden 38% (couplets, bigeminy, trigeminy)- NSVT 4 episodes of 3 beat VTEcho: 04/2022- LVEF 65%, normal RVsize/functionCardiac dysrhythmias (3 sources)Bradycardia; Translations: [Bradycardia, unspecified]10-19-2024 EpisodicConditions associated with dizziness or vertigo (1 source)Dizziness and giddiness; Translations: [Dizziness and giddiness] EpisodicDisorders of lipid metabolism (20 sources)Familial hypercholesterolemia; Translations: [Pure hypercholesterolemia]Onset: 26-05-2122OarxpzjW Codes: Fall (1 source)Other fall on same level, initial encounter; Translations: [OTHER FALL ON SAME LEVEL INITIAL]Onset: 27-21-3473TpabhxdnLelmrxtkh hypertension (20 sources)Essential (primary) hypertension; Translations: [Essential hypertension]Onset: 73-19-0023EmwtgnbGcxwojzfdklty symptoms and ill-defined conditions (12 sources)Nocturia; Translations: [Nocturia]EpisodicHyperplasia of prostate (14 sources)Lower urinary tract symptoms due to benign prostatic hypertrophy; Translations: [Benign prostatic hyperplasia with lower urinary tract symptoms] Onset: 84-97-4777RblarjnJgxrjrrlozoyx and screening for infectious disease (1 source)Encounter for immunization; Translations: [ENCOUNTER FOR IMMUNIZATION] Onset: 93-88-0199MsoezlrnAtratqvsfgyfc mental health disorders (3 sources)Primary insomnia; Translations: [Primary insomnia]41-86-6427Zhhzpmj Nausea and vomiting (1 source)Nausea with vomiting, unspecified; Translations: [NAUSEA WITH VOMITING UNSPECIFIED]Onset: 65-70-7297UjqwswvwUyqpkickjfix breast conditions (1 source)Unspecified lump in the right breast, upper outer quadrant; Translations: [Unspecified lump in the right breast, upper outer quadrant]Onset: 59-45-3664OfbjsqayJvhmscdktbf chest pain (8 sources)Chest wall pain; Translations: [Other chest pain]87-39-0248Enscdrgv Occlusion or stenosis of precerebral arteries (20 sources)Carotid artery occlusion; Translations: [Occlusion and stenosis of carotid artery]Onset: 627891-36-5441OhdwlbbWghmwej on above:CEA left 2016, right 2018Open wounds of head; neck; and trunk (1 source)Laceration without foreign body of left eyelid and periocular area, initial encounter; Translations: [LAC NO FB LT EYELID PERIOCULAR INIT]Onset: 73-36-2500YzebroqbSsbdk aftercare (1 source)terminal gauger (current) use of aspirin; Translations: [KETTLEMAN CURRENT USE OF ASPIRIN]Onset: 38-11-7597RqebpzzbZixqv bone disease and musculoskeletal deformities (4 sources)Pain of left shoulder blade; Translations: [Other specified disorders of bone, shoulder]89-71-5203SnpyqyldGjuwh connective tissue disease (13 sources)Disorder of soft tissue; Translations: [Other specified soft tissue disorders]EpisodicOther gastrointestinal disorders (13 sources)Abnormal feces; Translations: [Other fecal abnormalities]Episodic Other injuries and conditions due to external causes (1 source)History of fall; Translations: [History of falling]EpisodicOther lower respiratory disease (11 sources)Dyspnea on exertion; Translations: [Other forms of dyspnea]Episodic Other lower respiratory disease (1 source)Dyspnea; Translations: [Other forms of dyspnea]EpisodicOther lower respiratory disease (1 source)Other forms of dyspnea; Translations: [Dyspnea on exertion]Episodic Other lower respiratory disease (1 source)Persistent cough; Translations: [Persistent cough]91-04-7144Wbetpivd Other male genital disorders (12 sources)Impotence of organic origin; Translations: [Erectile dysfunction due to arterial insufficiency]ChronicOther male genital disorders (2 sources)Erectile dysfunction due to arterial insufficiencyChronicOther nervous system disorders (5 sources)Chronic pain; Translations: [Other chronic pain]ChronicOther nervous system disorders (1 source)Other chronic painChronicOther non-traumatic joint disorders (1 source)Pain in right shoulderEpisodicOther nutritional; endocrine; and metabolic disorders (12 sources)Overweight; Translations: [Overweight]EpisodicOther nutritional; endocrine; and metabolic disorders (1 source)Overweight; Translations: [Body mass index (BMI) of 25.0 to 29.9] EpisodicOther screening for suspected conditions (not mental disorders or infectious disease) (5 sources)Encounter for screening for malignant neoplasm of prostate; Translations: [Patient encounter status]Onset: 04-01-0597BkjpkfeeZkglbvx on above:PSA: 0.38 - 10/2024, 0.52 - 4Phlebitis; thrombophlebitis and thromboembolism (13 sources)Phlebitis and thrombophlebitis of other sites; Translations: [Superficial thrombophlebitis of left upper extremity]EpisodicScreening and history of mental health and substance abuse codes (2 sources)Personal history of nicotine dependence; Translations: [Encounter for screening for depression]Onset: 67-29-4688UquzngzoXuivqltxide; intervertebral disc disorders; other back problems (13 sources)Lumbar spondylosis; Translations: [Spondylosis without myelopathy or radiculopathy, lumbar region]ChronicSubstance-related disorders (6 sources)Nicotine dependence; Translations: [Nicotine dependence, unspecified, uncomplicated]38-51-8105XmfoaokMrmynez (18 sources)Syncope and collapse; Translations: [Vasovagal syncope]Onset: 25-77-9316IvkkjntyVghfnpd disorders (20 sources)Nontoxic single thyroid nodule; Translations: [Thyroid nodule]Onset: 18-25-4839DuhuhsqZkbarmw on above:s/p FNA in 2010,s/p FNA in 2022 (left inferior lobe nodule: 2.4x2.3cm TR4 - path non-diagnostic)US:right 12mm TR3, 5mm TR4, left 2.4cm TR3, 1.7cm and 1.6cm TR2 - 10/2024 (recheck 1 year)Unclassified (1 source)Exposure to acute respiratory syndrome coronavirus 2; Translations: [Contact with and (suspected) exposure to COVID-19]Viral infection (1 source)COVID-19; Translations: [COVID-19]Onset: 2022 Past or Other Problems Problem ClassificationProblemDateDocumented DateEpisodic/ChronicFluid and electrolyte disorders (2 sources)Dehydration; Translations: [Hypokalemia]Onset: 78-25-1658Nwskzqxa Malaise and fatigue (2 sources)Other fatigue; Translations: [Malaise and fatigue]Onset: 06-28-2015 EpisodicOther aftercare (1 source)Other assistant terminal manager (current) drug therapy; Translations: [[facility] LIV[facility] CURRENT DRUG THERAPY]Onset: 98-14-6023EmjmijymDblbv circulatory disease (1 source)Elevated blood-pressure reading without diagnosis of hypertension; Translations: [Elevated blood-pressure reading, without diagnosis of hypertension]Onset: 28-77-2410SgjawcihExogt lower respiratory disease (1 source)Dyspnea, unspecified; Translations: [DYSPNEA UNSPECIFIED]Onset: 61-29-5790CaipcstcNadsx upper respiratory infections (2 sources)Acute upper respiratory infection, unspecified; Translations: [Acute sinusitis]Onset: 06-88-2262LjlmysvjSjzjnt media and related conditions (1 source)Eustachian tube salpingitis; Translations: [Unspecified Eustachian salpingitis]Onset: 82-77-3396GrcmclzwMmagzlfuzmk; intervertebral disc disorders; other back problems (1 source)Low back pain; Translations: [Low back pain, unspecified]Onset: 51-97-7694Dinrxabf Results Test NameValueInterpretationReference RangeFacilityMM diagnostic mammo BI w/CAD on 59-19-3673RV diagnostic mammo BI w/CADREGENCY [place] [address] Ultrasound Report Signed Patient: Yamini Spence MR#: [id number] : 1950 Acct:[id number] Age/Sex: 74 / M ADM Date: 05/31/25 Loc: [place] Room: Type: [facility] Attending Dr: Rick Hernandez DO Ordering Provider: Rick Hernandez DO Date of Service: 05/31/25 US/US breast RT limited: N63.11 - Unspecified lump in the right breast, upper oute... ([id number]) MM/MM diagnostic mammo BI w/CAD: N63.11 - Unspecified lump in the right breast, upper oute... Copies to: Rick Hernandez DO CLINICAL DATA: Lump right breast Bilateral DIAGNOSTIC MAMMOGRAM - WITH TOMOSYNTHESIS AND CAD , rightLIMITED BREAST ULTRASOUND COMPARISON:None Tomosynthesis imaging was obtained using low-dose digital technique. This examination was reviewed with the aid of CAD. Additional ultrasound imaging was also obtained. Mammogram: The breasts are predominantly fatty in nature. No areas of architectural distortion, worrisome masses or suspicious microcalcifications. Ultrasound: In the area of lump at the 10:00 position of the right breast 3 cm from the nipple, no solid mass or cyst is noted. US/US breast RT limited IMPRESSION: NO MAMMOGRAPHIC OR ULTRASOUND EVIDENCE OF MALIGNANCY. THE PATIENT'S PALPABLE LUMP SHOULD BE HANDLED ON A CLINICAL BASIS. RESULT CODE: 1 Negative DENSITY CODE: 1 (<25% glandular) The breasts are almost entirely fatty. FOLLOW UP: 1YR The false-negative rate of mammography is approximately 10-percent. Management of a palpable abnormality must be based on clinical grounds. Impression dictated by: Elliot Velasquez Jr., D.OGreta 05/31/2025 11:19 AM Dictation Location: [facility] Tech: Tracie Villarreal Transcribed By: MAGGIE 05/31/25 111 Dictated By: Elliot Velasquez Jr, DO 05/31/25 111 Signed By: 05/31/25 [facility] Physician GroupUS THYROID FN ASP BXon 07-27-0601MB THYROID FN ASP BX Begin Addendum #1 COLLECTED DATE/TIME: 12/20/2022 10:51 EST Final Diagnosis Report for [facility] [place] (A/B) LEFT THYROID INFERIOR NODULE, ULTRASOUND GUIDED FINE NEEDLE ASPIRATION: -THE SPECIMENS ARE HYPOCELLULAR AND NONDIAGNOSTIC. 12/25/[address] Jacquelyn Hernandez. Verified with Shahnaz that report was present in office (BM). Original Report EXAMINATION: US THYROID FN ASP BX HISTORY: Thyroid nodule COMPARISON: No relevant comparison available. TECHNIQUE: After obtaining informed consent, ultrasound-guided fine needle aspiration was performed in the usual sterile manner. FINDINGS: IMAGING: Ultrasound. BIOPSY NEEDLE: 25-gauge 2 inch LOCATION: 2.7 cm left thyroid nodule SPECIMEN TYPE: 4 fine-needle aspirates Cellular tissue. LOCAL ANESTHETIC: 3 mL 1% buffered lidocaine COMPLICATIONS: None. LABORATORY: Prepared slide smears and washings for cell block evaluation. OTHER: Negative. PATHOLOGY: Pending. An addendum will be added when results are available. IMPRESSION: 1. Uneventful ultrasound guided fine needle aspiration (FNA). 2. Pathology results are pending.NormalThe [facility] HospitalT3, TOTAL (TRIIODOTHYRONINE)on 62-76-8300C9, HXMFX388 ng/zFKkxruk72-609Bni [facility] HospitalComment on above:Performed By: #### BMP, CMADM #### [facility] [address] [place] [address] Dr. Daisha Henderson THYROIDon [id number] [employer] Other [facility] T4on [id number] T4 [Mass/Vol]1.06 ng/dLNormal 0.76-1.46The [facility] HospitalComment on above:Performed By: #### FT4 #### [facility] [address] [place] [address] Dr. Daisha FrancisHomodesta 16-75-9217NLN1.760 uIU/mLNormal0.358-3.740The [facility] HospitalComment on above:Performed By: #### TSH #### [facility] [address] [place] [address] Dr. Daisha Henderson THYROIDon [id number] THYROIDEXAM: US THYROID HISTORY: Non-toxic uninodular goiter COMPARISON: None. TECHNIQUE: Multiple sonographic images of the thyroid gland were obtained, supplemented with Doppler. FINDINGS: The right lobe measures 5.2 x 1.3 x 1.4 cm. Homogeneous echoes are noted throughout. A small solid nodule is seen in the superior aspect measuring 0.8 x 0.7 x 0.7 cm. A slightly larger solid nodular structure seen in the inferior aspect of the right lobe measuring 1.2 x 0.9 x 0.8 cm. The left lobe measures 6.3 x 2.9 x 2.1 cm. Homogeneous echoes are noted throughout. In the superior aspect there is a mixed nodule measuring 2.3 x 2.2 x 1.7 cm. In the inferior aspect there is a solid nodule measuring 2.7 x 2.3 x 2.0 cm. The isthmus measures 7 mm in thickness. There is no evidence of a focal mass or abnormal fluid collection surrounding the gland. IMPRESSION: The thyroid gland is enlarged. Multiple nodules are identified. The solid nodule in the superior aspect of the right lobe and the mixed nodule in the superior aspect of the left lobe are rated TI RADS 3. Biopsy is not recommended at this time. The solid nodule in the inferior aspect of the right lobe and the solid nodule in the inferior aspect of the left lobe are rated TI RADS 4. Consideration for biopsy of the solid nodule along the inferior aspect of the left lobe is recommended. Comparison with a previous study would be helpful in determining the chronicity of these findings. Electronically authenticated by: MAULIK KWON Date: 2022-12-05 13:48[facility] CenterCARDIAC JAME ADMITon [id number] [Catalytic activity/Vol]56 U/UVpznys43-247Hah [facility] HospitalComment on above:Performed By: #### MARY SANCHEZ #### [facility] [address] [address] [address] Daisha Sands.MB [Mass/Vol]0.61 ng/mLNormal<=3.60The [facility] Comment on above:Performed By: #### MARY SANCHEZ #### [facility] [address] [place], [place] [address] Dr. Daisha HooperTROP6.2 pg/mLNormal4.0-76.1The [facility] HospitalComment on above:Result Comment: CUT-OFF POINTS HAVE BEEN ESTABLISHED BASED ON THE FOURTH UNIVERSAL DEFINITIONS OF MYOCARDIAL INFARCTION. THE UPPER REFERENCE LIMIT (URL) OF TROPONIN, DEFINED THE 99TH PERCENTILE OF cTnI DISTRIBUTION IN A REFERENCE POPULATION, HAS BEEN CONFIRMED THE DECISION THRESHOLD FOR SD DIAGNOSIS.Performed By: #### CORRIE SANCHEZDM #### [facility] [address] [place] [address] Dr. Daisha SharpeMYO55 ng/zECnohky81-39Shb [facility] HospitalComment on above: Performed By: #### CORRIE SANCHEZDM #### [facility] [address] [place] [address] Dr. Diasha Carrington AUTO DIFFon [id number] #0.1 103/ulNormal0.0-0.1The [facility] HospitalComment on above:Performed By: #### CBC #### [facility] [address] [place] [address] Dr. Daisha SharpeBasophils/100 WBC (Bld)0.5 %Normal0.2-2.0[facility] Comment on above:Performed By: #### CBC #### [facility] [address] [place] [address] Dr. Daisha Graham #0.3 103/ulNormal0.0-0.7The [facility] HospitalComment on above: Performed By: #### CBC #### [facility] [address] [place] [address] Dr. Daisha Cookosinophils/100 WBC (Bld)2.7 %Normal0.9-7.0[facility] Comment on above:Performed By: #### CBC #### [facility] [address] [place] [address] Dr. Daisha Cookrythrocyte distribution width (RBC) [Ratio]13.4 %Aksqrr34.0-15.0 The [facility] HospitalComment on above:Performed By: #### CBC #### [facility] [address] [place] [address] Dr. Daisha SharpeHematocrit (Bld) [Volume fraction]44.5 %Nbgzws91.0-54.0The [facility] HospitalComment on above:Performed By: #### CBC #### [facility] [address] [address] [address] Daisha SharpeHemoglobin (Bld) [Mass/Vol]15.8 g/zXNtclth48.0-18.0The [facility] HospitalComment on above:Performed By: #### CBC #### [facility] [address] [place] [address] Dr. Daisha Blunt #0.03 10e3/ulNormal0.00-0.03The [facility] HospitalComment on above:Performed By: #### CBC #### [facility] [address] [place] [address] Dr. Daisha Blunt %0.3 %Normal0.0-0.5The [facility] HospitalComment on above: Performed By: #### CBC #### [facility] [address] [place] [address] Dr. Daisha Romano #2.4 103/ulNormal1.2-3.8The [facility] HospitalComment on above:Performed By: #### CBC #### [facility] [address] [place] [address] Dr. Daihsa Whipplehocytes/100 WBC (Bld)24.6 %Jtcddd82.5-60.0The [facility] HospitalComment on above:Performed By: #### CBC #### [facility] [address] [place] [address] Dr. Daisha AlvarezUAL DIFF REQNONormalThe [facility] Allen HospitalComment on above: Performed By: #### CBC #### [facility] [address] [place] [address] Dr. Daisha Harrison (RBC) [Entitic mass]29.9 ezApzndf10.9-34.0The [facility] HospitalComment on above:Performed By: #### CBC #### [facility] [address] [place] [address] Dr. Daisha Harrison (RBC) [Mass/Vol]35.5 g/dLCritically high29.9-35.2The [facility] HospitalComment on above:Performed By: #### CBC #### [facility] [address] [address] [address] Daisha HarrisonV (RBC) [Entitic vol]84.3 mXSavglg31.0-94.0The [facility] HospitalComment on above:Performed By: #### CBC #### [facility] [address] [address] [address] Daisha Diaz #1.3 103/ulCritically high0.3-0.8The [facility] Comment on above:Performed By: #### CBC #### [facility] [address] [address] [address] Daisha Beltranocytes/100 WBC (Bld)13.5 %Critically high1.7-12.0The [facility] HospitalComment on above:Performed By: #### CBC #### [facility] [address] [place] [address] Dr. Daisha Travis #5.7 103/ulNormal1.4-6.5The [facility] HospitalComment on above:Performed By: #### CBC #### [facility] [address] [place] [address] Dr. Daisha Zambranoutrophils/100 WBC (Bld)58.4 %Krzcsc52.0-75.0The [facility] HospitalComment on above:Performed By: #### CBC #### [facility] [address] [place] [address] Dr. Daisha Johnsonlet mean volume (Bld) [Entitic vol]9.9 fLNormal9.5-13.5The [facility] HospitalComment on above:Performed By: #### CBC #### [facility] [address] [place] [address] Dr. Daisha SharpePLT227 103/amXoqpfo569-745Giw [facility] HospitalComment on above: Performed By: #### CBC #### [facility] [address] [place] [address] Dr. Daisha SharpeRBC5.28 106/ulNormal4.70-6.10The [facility] HospitalComment on above:Performed By: #### CBC #### [facility] [address] [place], [place] [address] Dr. Daisha SharpeWBC9.7 103/ulNormal4.0-11.0The [facility] HospitalCommemorial healthcare on above: Performed By: #### CBC #### [facility] [address] [place], [place] [address] Dr. Daisha SharpeCT CSPINE WO CONon [id number] CSPINE WO CONCT head without contrast CLINICAL: Syncope. Dizziness and weakness with vomiting. Patient passed out at work. TECHNIQUE: Contiguous transaxial images were obtained from skull base to vertex without administration of intravenous contrast. Dose reduction: mA and/or kV are were adjusted by automated exposure control software based upon patients height and weight. FINDINGS: There are no prior exams for comparison. There is minimal frontal scalp soft tissue swelling without acute calvarial fracture. The visualized globes and orbits are grossly normal. There is mild paranasal sinus mucosal thickening without air-fluid levels Bilateral mastoid air cells are clear. The ventricles and sulci are prominent bilaterally. There is periventricular and deep subcortical white matter low-attenuation consistent with small vessel ischemic disease. There is no intraparenchymal hemorrhage, extraaxial fluid collection, mass lesion, or acute large territory ischemia by noncontrast CT. IMPRESSION: 1. No acute intracranial hemorrhage or acute large territory ischemia by noncontrast CT. 2. Mild cerebral atrophy and chronic small vessel ischemic disease. 3. Minimal frontal scalp soft tissue swelling. CT cervical spine CLINICAL: Syncope. Dizziness and weakness with vomiting. Patient passed out at work. TECHNIQUE: Contiguous transaxial images obtained from skullbase through cervical spine without administration of intravenous contrast. Coronal and sagittal reformations were obtained. Dose reduction: mA and/or kV are were adjusted by automated exposure control software based upon patients height and weight. FINDINGS: There are no prior exams for comparison. There is mild straightening of the cervical spine. There is no prevertebral soft tissue swelling or acute cervical spine fracture. There is likely tiny old fractured spur at superior articular process of C6 on the right along the right C5-6 facet joint. There is multilevel degenerative disc disease of the cervical spine with prominent ventral bridging spurs. There is also a prominent posterior disc-osteophyte complex at C4-5 that contribute to central canal stenosis. There is multilevel and bilateral uncovertebral joint osteoarthritis there is also mild multilevel and bilateral facet joint osteoarthritis. Uncovertebral and facet joint osteoarthritis contribute to neural foraminal narrowing. There is atlantodental articulation osteoarthritis. There is nuchal ligament ossification. There are bilateral cervical surgical clips. There is bilateral carotid artery atherosclerosis. Partially visualized is a 1.3 cm hypoattenuating left thyroid lobe nodule. IMPRESSION: 1. No acute cervical spine fracture. There is likely tiny old fractured spur along the right C5-6 facet joint. 2. Multilevel degenerative disc disease of the cervical spine with prominent ventral bridging spurs. There is also a prominent posterior disc-osteophyte complex at C4-5 that contributes to central canal stenosis. 3. 1.3 cm hypoattenuating left thyroid lobe nodule. 4. Additional incidental findings as described. Electronically authenticated by: NATASHA HOLMAN Date: 2022-11-11 15:[address] [place] [address] CHEST WO W CONon [id number] CHEST WO W CONCTA CHEST WO W CON CLINICAL: Syncope. Dizziness and weakness. Vomiting. Elevated serum d-dimer. COMPARISON: Earlier same day chest radiograph 11/11/2022, and prior chest radiograph 06/05/2022. No prior chest CT is available. TECHNIQUE: Thin section axial images were obtained from thoracic inlet to the diaphragms following the administration of intravenous contrast. CT angiographic reconstructions of the pulmonary arteries including multiple intensity projections in coronal and sagittal planes were performed. Dose reduction: mA and/or kV are were adjusted by automated exposure control software based upon patients height and weight. FINDINGS: Thoracic inlet and axillary structures show a low-density left thyroid lobe lesion of 2.3 cm, nonspecific. No mediastinal or hilar adenopathy. Heart size is slightly enlarged. Coronary artery calcifications are present. No pericardial effusion. Pulmonary arterial tree is opacified and shows no filling defect to indicate pulmonary embolism. Limited upper abdominal images show a low-density lesion in the liver near the hepatic dome consistent with a 1.6 cm simple cyst by density measurement. Additional smaller simple cysts are also present in the lateral left lobe. No acute upper abdominal findings. Lung windows show hazy airspace opacity in the posterior left upper lobe along the interlobar fissure, with additional linear parenchymal densities in the posterior costophrenic sulci consistent with scarring or atelectasis, greater on the left. A lesser degree of haziness is present in the posterior right upper lobe. No dense regional consolidation, effusion or pneumothorax. Central airways are grossly patent, with retained secretions along the proximal right tracheal margin. Osseous structures show no acute traumatic or destructive lesion. IMPRESSION: 1. No evidence of pulmonary embolism. 2. Subtle haziness within the posterior left upper lobe parenchyma and to a lesser extent right upper lobe, most suggestive of atelectasis, early pulmonary infiltrate less likely but not excluded. 3. No dense regional consolidation or pleural effusion. Note is made of retained secretions along the right proximal trachea. 4. 2.3 cm hypoattenuating lesion in the left thyroid lobe. ACR guidelines recommend thyroid ultrasound evaluation for thyroid lesions of this size. 5. Benign-appearing hepatic cysts incidentally noted. Electronically authenticated by: THOMAS MERCADO Date: 2022-11-11 15:57[facility] CenterD-DIMERon [id number]-DIMER0.63 mg/L FEUCritically high<=0.59 The [facility] HospitalComment on above:Performed By: #### CORRIE SANCHEZDM #### [facility] [address] [address] [address] Daisha Edwards-DIMER COMMENTSSEE [facility] on above:Result Comment: Increases in D-Dimer concentration observed with thromboembolic events can be variable due to localization, size, and age of the thrombus. Therefore, a thromboembolic event cannot be diagnosed with certainty on the basis of the reference range. D-Dimers may also be elevated for a variety of disorders including: advanced age, , coronary disease, cancer, liver disease, infection, inflammation, hematoma, DIC, trauma, post-surgery, diabetes, thrombolytic or anticoagulant therapy, stress, and generalized hospitalization. Performed By: #### LAURA, CORRIEDM #### [facility] [address] [address] [address] Daisha SharpePROF CHEM 8 (BAS METB)on [id number] gap [Moles/Vol]15.6 mmol/LNormalThe [facility] HospitalComment on above:Performed By: #### LAURA, CORRIEDM #### [facility] [address] [address] [address] Daisha SharpeCalcium [Mass/Vol]9.0 mg/dLNormal8.5-10.1The [facility] Comment on above:Performed By: #### BMP, CMADM #### [facility] [address] [address] [address] Daisha SharpeChloride [Moles/Vol]102 mmol/DNclrni51-079Zvv [facility] Comment on above:Performed By: #### BMP, CMADM #### [facility] [address] [address] [address] Daisha SharpeCO2 [Moles/Vol]21.0 mmol/PKtyesh00.0-32.0The [facility] Comment on above:Performed By: #### BMP, CMADM #### [facility] [address] [address] [address] Daisha SharpeCreatinine [Mass/Vol]1.19 mg/dLNormal0.70-1.30The [facility] HospitalComment on above:Performed By: #### BMP, CMADM #### [facility] [address] [address] [address] Ashton ChangEGFR-AF STATELESS>60Normal>=60The [facility] HospitalComment on above:Performed By: #### BMP, CMADM #### [facility] [address] [place] [address] Dr. Daisha CookGFR-NON AF STATELESS=60Normal>=60The [facility] HospitalComment on above:Performed By: #### BMP, CMADM #### [facility] [address] [place] [address] Dr. Daisha SharpeGlucose [Mass/Vol]160 mg/dLCritically mepd84-862Hxf [facility] HospitalComment on above:Performed By: #### BMP, CMADM #### [facility] [address] [place] [address] Dr. Daisha SharpePotassium [Moles/Vol]3.6 mmol/LNormal3.5-5.1The [facility] Comment on above:Performed By: #### BMP, CMADM #### [facility] [address] [address] [address] Daisha SharpeSodium [Moles/Vol]135 mmol/LCritically pgw764-025Xdp [facility] [place] on above:Performed By: #### LAURA, CMADM #### [facility] [address] [address] [address] Daisha Cormier nitrogen [Mass/Vol]15.0 mg/dLNormal7.0-18.0The [facility] HospitalComment on above:Performed By: #### LAURA, CMADM #### [facility] [address] [address] [address] Daisha Cormier nitrogen/Creatinine [Mass ratio]12.6 mg/mgNoSelect Medical Specialty Hospital [facility] SouthCommemorial healthcare on above:Performed By: #### LAURA, CORRIEDM #### [facility] [address] [place] [address] Dr. Daisha SharpeXR CHEST 1 Von [id number] CHEST 1 VEXAM: XR CHEST 1 V HISTORY: Syncope COMPARISON: Chest radiographs 06/05/2022 TECHNIQUE: AP radiograph of the chest. FINDINGS: The cardiomediastinal silhouette and pulmonary vasculature are normal. The lungs are without focal consolidation, pneumothorax, or pleural effusion. No acute osseous abnormality. Surgical clips at the right neck. Osteophytes of thoracic spine. IMPRESSION: 1. No acute pulmonary abnormality. Electronically authenticated by: ELLIOT CACERES Date: 2022-11-11 15:18[facility] Medical CenterBNPon [id number] peptide B (Bld) [Mass/Vol]121.0 pg/mLNormal<=900.0The [facility] [place] on above:Performed By: #### LAURA, CORRIEDM #### [facility] [address] [address] [address] Daisha Brown JAME ADMITon [id number] [Catalytic activity/Vol]137 U/L Kxkjbm96-195Nxv [facility] [place] on above:Performed By: #### LAURA, CORRIEDM #### [facility] [address] [place] [address] Dr. Daisha Sands.MB [Mass/Vol]1.99 ng/mLNormal<=3.60[facility] Comment on above:Performed By: #### CORRIE SANCHEZDM #### [facility] [address] [place] [address] Dr. Daisha HooperTROP14.6 pg/mLNormal4.0-76.1[facility] HospitalComment on above:Result Comment: CUT-OFF POINTS HAVE BEEN ESTABLISHED BASED ON THE FOURTH UNIVERSAL DEFINITIONS OF MYOCARDIAL INFARCTION. THE UPPER REFERENCE LIMIT (URL) OF TROPONIN, DEFINED THE 99TH PERCENTILE OF cTnI DISTRIBUTION IN A REFERENCE POPULATION, HAS BEEN CONFIRMED THE DECISION THRESHOLD FOR SD DIAGNOSIS.Performed By: #### CORRIE SANCHEZDM #### [facility] [address] [place] [address] Dr. Daisha HickeyO151 ng/mLCritically irjh10-37OiqCorey HospitalComment on above:Performed By: #### CORRIE SANCHEZDM #### [facility] [address] [place] [address] Dr. Daisha Carrington AUTO DIFFon [id number] #0.0 103/ulNormal0.0-0.1[facility] HospitalComment on above:Performed By: #### CBC #### [facility] [address] [place] [address] Dr. Daisha Levysophils/100 WBC (Bld)0.4 %Normal0.2-2.0[facility] Comment on above:Performed By: #### CBC #### [facility] [address] [place] [address] Dr. Daisha Graham #0.1 103/ulNormal0.0-0.7The [facility] HospitalComment on above: Performed By: #### CBC #### [facility] [address] [place] [address] Dr. Daisha Cookosinophils/100 WBC (Bld)2.5 %Normal0.9-7.0[facility] Comment on above:Performed By: #### CBC #### [facility] [address] [place] [address] Dr. Yilan ChangErythrocyte distribution width (RBC) [Ratio]13.6 %Obsxmg77.0-15.0 [facility] HospitalComment on above:Performed By: #### CBC #### [facility] [address] [place] [address] Dr. Daisha SharpeHematocrit (Bld) [Volume fraction]39.4 %Critically low42.0-54.0 The [facility] HospitalComment on above:Performed By: #### CBC #### [facility] [address] [place] [address] Dr. Daisha SharpeHemoglobin (Bld) [Mass/Vol]13.8 g/dLCritically low14.0-18.0The [facility] HospitalComment on above:Performed By: #### CBC #### [facility] [address] [place] [address] Dr. Daisha Blunt #0.01 10e3/ulNormal0.00-0.03The [facility] HospitalComment on above:Performed By: #### CBC #### [facility] [address] [place] [address] Dr. Daisha Blunt %0.2 %Normal0.0-0.5The [facility] HospitalComment on above: Performed By: #### CBC #### [facility] [address] [place] [address] Dr. Daisha WhippleH #0.9 103/ulCritically low1.2-3.8The [facility] Comment on above:Performed By: #### CBC #### [facility] [address] [place] [address] Dr. Daisha Humphreysmphocytes/100 WBC (Bld)16.6 %Critically low20.5-60.0The [facility] HospitalComment on above:Performed By: #### CBC #### [facility] [address] [place] [address] Dr. Daisha AlvarezUAL DIFF REQNONormalThe [facility] HospitalComment on above: Performed By: #### CBC #### [facility] [address] [place] [address] Dr. Daisha Harrison (RBC) [Entitic mass]30.5 hxDsepic80.9-34.0The [facility] HospitalComment on above:Performed By: #### CBC #### [facility] [address] [place] [address] Dr. Daisha Harrison (RBC) [Mass/Vol]35.0 g/iWKwcpqq32.9-35.2The [facility] HospitalComment on above:Performed By: #### CBC #### [facility] [address] [place] [address] Dr. Daisha Harrison (RBC) [Entitic vol]87.0 gODznsge96.0-94.0The [facility] HospitalComment on above:Performed By: #### CBC #### [facility] [address] [place] [address] Dr. Daisha Diaz #0.5 103/ulNormal0.3-0.8The [facility] HospitalComment on above:Performed By: #### CBC #### [facility] [address] [place] [address] Dr. Daisha Beltranocytes/100 WBC (Bld)9.2 %Normal1.7-12.0The [facility] Comment on above:Performed By: #### CBC #### [facility] [address] [place] [address] Dr. Daisha Travis #3.9 103/ulNormal1.4-6.5The [facility] HospitalComment on above:Performed By: #### CBC #### [facility] [address] [place] [address] Dr. Daisha Zambranoutrophils/100 WBC (Bld)71.1 %Fuwqid67.0-75.0The [facility] HospitalComment on above:Performed By: #### CBC #### [facility] [address] [place] [address] Dr. Daisha Johnsonlet mean volume (Bld) [Entitic vol]9.5 fLNormal9.5-13.5The [facility] HospitalComment on above:Performed By: #### CBC #### [facility] [address] [place] [address] Dr. Daisha SharpePLT155 103/rmPrjsja846-849Elu [facility] HospitalComment on above: Performed By: #### CBC #### [facility] [address] [place] [address] Dr. Daisha SharpeRBC4.53 106/ulCritically low4.70-6.10The [facility] [place] on above:Performed By: #### CBC #### [facility] [address] [place] [address] Dr. Daisha SharpeWBC5.5 103/ulNormal4.0-11.0The [facility] [place] on above: Performed By: #### CBC #### [facility] [address] [place] [address] Dr. Daisha Eckert-19 PCR (CVDTBH)on [id number]-CoV-2 (COVID-19) RNA RAYMUNDO+probe Ql (Unsp spec)DetectedCritically abnormalNOT DETECTEDThe [facility] on above:Result Comment: This test is not yet approved or cleared by the [place] FDA. When there are no FDA-approved or cleared tests available, and other criteria are met, FDA can make tests available under an emergency access mechanism called an Emergency Use Authorization (EUA). The EUA for this test is supported by the Scanning Coordinator of Health and Human Service's declaration that circumstances exist to justify the emergency use of in vitro diagnostics for the detection and/or diagnosis of the virusthat causes COVID-19. This EUA will remain in effect for the duration of the COVID-19 declaration ju stifying emergency of IVDs, unless it is terminated or revoked by the FDA (after which the test mayno longer be used).Performed By: #### DDIM, PT, PTT #### [facility] [address] [place] [address] Dr. Daisha Edwards-DIMERon [id number]-DIMER0.58 mg/L FEUNormal<=0.59The [facility] [place] on above:Performed By: #### DDIM, PT, PTT #### [facility] [address] [place] [address] Dr. Daisha SharpeD-DIMER COMMENTSSEE [facility] NorthComment on above:Result Comment: Increases in D-Dimer concentration observed with thromboembolic events can be variable due to localization, size, and age of the thrombus. Therefore, a thromboembolic event cannot be diagnosed with certainty on the basis of the reference range. D-Dimers may also be elevated for a variety of disorders including: advanced age, , coronary disease, cancer, liver disease, infection, inflammation, hematoma, DIC, trauma, post-surgery, diabetes, thrombolytic or anticoagulant therapy, stress, and generalized hospitalization. Performed By: #### DDIM, PT, PTT #### [facility] [address] [place] [address] Dr. Daisha Kaminski 14(COMP METB)on [id number] [Mass/Vol]3.0 g/dL Critically low3.4-5.0The [facility] HospitalComment on above:Performed By: #### LAURA, CMADM #### [facility] [address] [place] [address] Dr. Daisha SharpeAlbumin/Globulin [Mass ratio]0.8 {ratio}NormalThe [facility] HospitalComment on above:Performed By: #### LAURA, CMADM #### [facility] [address] [place] [address] Dr. Daisha Castañeda [Catalytic activity/Vol]63 U/KAskogl40-010Fdb [facility] HospitalComment on above:Performed By: #### BMP, CMADM #### [facility] [address] [place] [address] Dr. Daisha Deras [Catalytic activity/Vol]17 U/KZjrdyu32-10Ood [facility] on above:Performed By: #### BMP, CMADM #### [facility] [address] [place] [address] Dr. Daisha Negrete gap [Moles/Vol]15.5 mmol/LNormalThe [facility] Comment on above:Performed By: #### BMP, CMADM #### [facility] [address] [address] [address] Daisha SharpeAST [Catalytic activity/Vol]20 U/CWtwhdw88-04Onz [facility] HospitalComment on above:Performed By: #### BMP, CMADM #### [facility] [address] [address] [address] Daisha SharpeBilirubin [Mass/Vol]1.1 mg/dLCritically high0.2-1.0The [facility] HospitalComment on above:Performed By: #### BMP, CMADM #### [facility] [address] [address] [address] Daisha SharpeCalcium [Mass/Vol]7.9 mg/dLCritically low8.5-10.1The [facility] HospitalComment on above:Performed By: #### BMP, CMADM #### [facility] [address] [address] [address] Daisha SharpeChloride [Moles/Vol]106 mmol/YTsynqx36-140Byj [facility] Comment on above:Performed By: #### BMP, CMADM #### [facility] [address] [address] [address] Daisha SharpeCO2 [Moles/Vol]21.4 mmol/YIhhxfp78.0-32.0The [facility] Comment on above:Performed By: #### BMP, CMADM #### [facility] [address] [address] [address] Daisha SharpeCreatinine [Mass/Vol]1.76 mg/dLCritically high0.70-1.30The [facility] HospitalComment on above:Performed By: #### BMP, CMADM #### [facility] [address] [address] [address] Ashton ChangEGFR-AF MFJABPNM62 mL/min/1.96e3Hgbgqkbouh low>=60The [facility] HospitalComment on above:Performed By: #### BMP, CMADM #### [facility] [address] [address] [address] Daisha CookGFR-NON AF BBLPFIFL03 mL/min/1.68c1Yoqlivwoav low>=60The [place] HospitalComment on above:Performed By: #### BMP, CMADM #### [facility] [address] [address] [address] Daisha SharpeGlobulin (S) [Mass/Vol]3.6 g/dLNormGreene Memorial HospitalComment on above:Performed By: #### BMP, CMADM #### [facility] [address] [address] [address] Daisha SharpeGlucose [Mass/Vol]155 mg/dLCritically sati15-323Mki [facility] HospitalComment on above:Performed By: #### BMP, CMADM #### [facility] [address] [address] [address] Daisha SharpePotassium [Moles/Vol]2.9 mmol/LCritically low3.5-5.1The [facility] HospitalComment on above:Performed By: #### LAURA, CMADM #### [facility] [address] [place] [address] Dr. Daisha SharpeProtein [Mass/Vol]6.6 g/dLNormal6.4-8.2The [facility] Comment on above:Performed By: #### LAURA, CMADM #### [facility] [address] [place] [address] Dr. Daisha SharpeSodium [Moles/Vol]140 mmol/VSnnjcp253-156Fbg [facility] Comment on above:Performed By: #### BMP, CMADM #### [facility] [address] [place] [address] Dr. Daisha SharpeUrea nitrogen [Mass/Vol]23.0 mg/dLCritically high7.0-18.0The [facility] HospitalComment on above:Performed By: #### BMP, CMADM #### [facility] [address] [place] [address] Dr. Daisha SharpeUrea nitrogen/Creatinine [Mass ratio]13.1 mg/mgNoSelect Medical Specialty Hospital - Columbus SouthComment on above:Performed By: #### BMP, CMADM #### [facility] [address] [place] [address] Dr. Daisha NunesIMEon [id number] Coag (PPP) [Relative time]1.01 {INR} NormalCorey HospitalComment on above:Performed By: #### DDIM, PT, PTT #### [facility] [address] [place] [address] Dr. Daisha Ferguson GUIDELINESSEE BELOWUniversity Hospitals Conneaut Medical CenterComment on above:Result Comment: DESIRED INR: 2.0 - 3.0 CONDITIONS NOT LISTED BELOW 2.5 - 3.5 FOR PROSTHETIC HEART VALVE REPLACEMENT 2.5 - 3.5 RECURRENT THROMBOSIS Performed By: #### DDIM, PT, PTT #### [facility] [address] [place] [address] Dr. Daisha SharpePT Coag (PPP) [Time]10.9 sNormal9.0-11.6The [facility] Comment on above:Performed By: #### DDIM, PT, PTT #### [facility] [address] [place] [address] Dr. Daisha Rosado 86-86-5356vGHH Coag (Bld) [Time]28.6 sRvsyft70.3-36.2The [facility] HospitalComment on above:Performed By: #### DDIM, PT, PTT #### [facility] [address] [place] [address] Dr. Daisha SharpeXR CHEST 1 Von 31-80-4892HY CHEST 1 VEXAMINATION: XR CHEST 1 V HISTORY: COUGH , syncopal episode COMPARISON: No relevant comparison available. FINDINGS: LUNGS: Hyperexpanded lungs without appreciable infiltrates or mass. VASCULATURE: No increased pulmonary vasculature. PLEURA: No pneumothorax, effusion, or pleural thickening. CARDIAC: No cardiomegaly or cardiac silhouette abnormality. MEDIASTINUM: No visible mass or adenopathy. BONES: No fracture or visible bone lesion. OTHER: Negative. IMPRESSION: 1. No acute cardiopulmonary process. Stable chest. Electronically authenticated by: ERIS CHAPMAN Date: 2022-06-05 09:11[facility] AUTO DIFFon [id number] #0.0 103/ulNormal0.0-0.1The [place] HospitalComment on above:Performed By: #### BMP, CMADM #### [facility] [address] [place] [address] Dr. Daisha SharpeBasophils/100 WBC (Bld)0.5 %Normal0.2-2.0The [facility] Comment on above:Performed By: #### BMP, CMADM #### [facility] [address] [place] [address] Dr. Daisha Graham #0.2 103/ulNormal0.0-0.7The [facility] HospitalComment on above: Performed By: #### LAURA, CMADM #### [facility] [address] [place] [address] Dr. Daisha Cookosinophils/100 WBC (Bld)3.1 %Normal0.9-7.0The [facility] Comment on above:Performed By: #### LAURA, CMADM #### [facility] [address] [place] [address] Dr. Daisha Cookrythrocyte distribution width (RBC) [Ratio]13.2 %Vseyyd05.0-15.0 The [facility] HospitalComment on above:Performed By: #### LAURA, CMADM #### [facility] [address] [place] [address] Dr. Daisha SharpeHematocrit (Bld) [Volume fraction]43.9 %Uiryjh91.0-54.0The [facility] HospitalComment on above:Performed By: #### BMP, CMADM #### [facility] [address] [place] [address] Dr. Daisha SharpeHemoglobin (Bld) [Mass/Vol]14.9 g/fLMlffyx21.0-18.0The [facility] HospitalComment on above:Performed By: #### BMP, CMADM #### [facility] [address] [place] [address] Dr. Daisha Blunt #0.02 10e3/ulNormal0.00-0.03The [facility] HospitalComment on above:Performed By: #### BMP, CMADM #### [facility] [address] [place] [address] Dr. Daisha Blunt %0.3 %Normal0.0-0.5The [facility] HospitalComment on above: Performed By: #### BMP, CMADM #### [facility] [address] [place] [address] Dr. Daisha Romano #1.4 103/ulNormal1.2-3.8The [facility] HospitalComment on above:Performed By: #### LAURA, CMADM #### [facility] [address] [place] [address] Dr. Daisha Whipplehocytes/100 WBC (Bld)24.9 %Wqpeem12.5-60.0The [facility] HospitalComment on above:Performed By: #### LAURA, CMADM #### [facility] [address] [place] [address] Dr. Daisha AlvarezUAL DIFF REQNONormalThe [facility] HospitalComment on above: Performed By: #### LAURA, CMADM #### [facility] [address] [place] [address] Dr. Daisha Harrison (RBC) [Entitic mass]30.5 vhDdfbwy17.9-34.0The [facility] HospitalCommemorial healthcare on above:Performed By: #### LAURA, CMADM #### [facility] [address] [place] [address] Dr. Daisha Harrison (RBC) [Mass/Vol]33.9 g/iZRcuvid51.9-35.2The [facility] HospitalCommemorial healthcare on above:Performed By: #### BMP, CMADM #### [facility] [address] [place] [address] Dr. Daisha Harrison (RBC) [Entitic vol]90.0 lYDboreh08.0-94.0The [facility] HospitalCommemorial healthcare on above:Performed By: #### LAURA, CMADM #### [facility] [address] [place] [address] Dr. Daisha Diaz #0.5 103/ulNormal0.3-0.8The [facility] HospitalComment on above:Performed By: #### BMP, CMADM #### [facility] [address] [address] [address] Daisha Beltranocytes/100 WBC (Bld)9.1 %Normal1.7-12.0The [facility] Comment on above:Performed By: #### BMP, CMADM #### [facility] [address] [place] [address] Dr. Daisha Travis #3.6 103/ulNormal1.4-6.5The [place] HospitalComment on above:Performed By: #### BMP, CMADM #### [facility] [address] [place] [address] Dr. Daisha Zambranoutrophils/100 WBC (Bld)62.1 %Ubmrqv92.0-75.0The [place] HospitalComment on above:Performed By: #### LAURA, CMADM #### [facility] [address] [place] [address] Dr. Daisha Patel mean volume (Bld) [Entitic vol]9.6 fLNormal9.5-13.5The [facility] HospitalComment on above:Performed By: #### LAURA, CMADM #### [facility] [address] [place] [address] Dr. Daisha SimonsT183 103/wsXhsnyi367-107Rpf [facility] HospitalComment on above: Performed By: #### BMP, CMADM #### [facility] [address] [place] [address] Dr. Daisha GaryC4.88 106/ulNormal4.70-6.10The [place] HospitalComment on above:Performed By: #### BMP, CMADM #### [facility] [address] [place] [address] Dr. Daisha SharpeWBC5.7 103/ulNormal4.0-11.0The [facility] HospitalComment on above: Performed By: #### BMP, CMADM #### [facility] [address] [place] [address] Dr. Daisha NiceDIO M/2D COMPLETEon 26-42-5528XHZMCOQEWV M/2D COMPLETE Patient: YAMINI SPENCE Exam Date: 04/18/2022 : 1950 Gender:M Ordering : DR RICK HERNANDEZ D.O. Admission #: [id number] Family : Order #: [id number] CLICK HERE TO VIEW EXAM ECHOCARDIOGRAM REPORT PROCEDURE: CARDIO PULMONARY ECHOCARDIO M/2D COMP INDICATIONS: Dyspnea on exertion, hypertension COMPARISON: None. DESCRIPTION: COMPLETE ECHOCARDIOGRAM Real-time transthoracic echocardiography with 2D, M-mode, spectral and color flow Doppler performed. QUALITY: Technical quality was good. LEFT VENTRICLE: Normal chamber size. Mild concentric left ventricular hypertrophy. Normal systolic function. LV EF: Normal left ventricular ejection fraction, (65%). DIASTOLIC: Diastolic function is indeterminate. ATRIAL SEPTUM: LEFT ATRIUM: Normal chamber size. RIGHT ATRIUM: Normal chamber size. RIGHT VENTRICLE: Normal chamber size. Normal right ventricular systolic function. TRICUSPID VALVE: Normal mobility and thickness. No stenosis with trivial regurgitation. Unable to assess right-sided pressures due to lack of measurable tricuspid regurgitation. MITRAL VALVE: Normal mobility and thickness. No evidence of mitral valve stenosis. There is no mitral annular calcification. Mild mitral regurgitation. AORTIC VALVE: Normal trileaflet appearance. Normal leaflet mobility. No evidence of aortic valve stenosis. Multifocal calcifications. No aortic regurgitation. AORTIC ROOT: Normal diameter and appearance. Ascending aorta is normal in size. PULMONIC VALVE: Normal thickness and mobility. No stenosis. Trivial regurgitation. PERICARDIUM: No evidence of pericardial effusion. IVC: Collapses with inspirations. IVC is normal in size. PLEURA: CONCLUSION: 1. Mild concentric left ventricular hypertrophy with normal systolic function. LVEF is 65%. 2. Normal right ventricular systolic function. 3. No significant valvular dysfunction. 4. No pericardial effusion. Adult Echocardiography Procedure Report Left Ventricle LVEDD (3.7 - 5.6 cm): 4.27 cm LVESD (2.2 - 4.0 cm): 3.11 cm LVIVS thickness (0.6 - 1.2 cm): 1.09 cm LVPW thickness (0.5 - 1.0 cm): 1.17 cm e': 6.80 cm/s E - e': 10.90 LVOT Area (cm2): 4.52 cm2 LVOT Diameter 2.40 cm Left Ventricular Ejection Fraction: 65 % Left Atrium LA Volume Index (2D A2C): 21.20 ml/m2 Left Atrium Systolic Dimension: 3.60 cm Left Atrium Systolic Area(A2C): 17.60 cm2 Left Atrium Systolic Area(A4C): 17.30 cm2 Left Atrium Systolic Volume(A2C): 47879 mm3 Left Atrium Systolic Volume(A4C): 84531 mm3 Mitral Valve MV E to A Ratio: 0.70 Mitral Valve A-Wave Peak Velocity: 99.70 cm/s Mitral Valve E-Wave Peak Velocity: 74.00 cm/s Deceleration Time: 280 ms Right Ventricle Aorta AO Root Diam: 3.30 cm Aortic Valve AoV Area (Peak Paresh): 3.98 cm2 Peak Velocity(Antegrade Flow): 99.90 cm/s Peak Gradient(Antegrade Flow): 4 mm[Hg] Tricuspid Valve Pulmonic Valve Peak Velocity: 84.90 cm/s Peak Gradient: 3 mm[Hg] Right Atrium Dictated by: Scottie Hernandez M.D. on 04/18/2022 at 20:16 Approved by: Scottie Hernandez M.D. on 04/18/2022 at 20:19[facility]aut Medical CenterLIPID PROFILEon [id number]-HDL RATIO NORMSEE [facility] NorthComment on above:Result Comment: 3.3 - 4.4 LOW RISK 4.4 - 7.1 AVERAGE RISK 7.1 - 11.0 MODERATE RISK >11.0 HIGH RISKPerformed By: #### MARY SANCHEZ #### [facility] [address] [place] [address] Dr. Daisha Simpsonesterol [Mass/Vol]132 mg/dLNormal<=200The [facility] Comment on above:Performed By: #### MARY SANCHEZ #### [facility] [address] [place] [address] Dr. Daisha Simpsonesterol in HDL [Mass/Vol]46 mg/cRAxvtzh34-53Xiw [facility] HospitalComment on above:Performed By: #### MARY SANCHEZ #### [facility] [address] [place] [address] Dr. Yilan ChangCholesterol in LDL [Mass/Vol]71.2 mg/dLUniversity Hospitals Conneaut Medical CenterComment on above:Performed By: #### LAURA, CMADM #### [facility] [address] [place] [address] Dr. Daisha Blackwell.total/Cholesterol in HDL [Mass ratio]2.9 {ratio} NormalThe [facility] HospitalComment on above:Performed By: #### BMP, CMADM #### [facility] [address] [place] [address] Dr. Daisha Last NORMAL> or = 60 mg/dl - LOW CARDIOVASCULAR RISK <40 mg/dl - HIGH CARDIOVASCULAR RISKUniversity Hospitals Conneaut Medical CenterComment on above:Performed By: #### LAURA, CMADM #### [facility] [address] [place] [address] Dr. Daisha Becerra CALC NORMALSEE BELOWUniversity Hospitals Conneaut Medical CenterComment on above:Result Comment: <100 mg/dl OPTIMAL 100 - 129 mg/dl NEAR OR ABOVE OPTIMAL 130 - 159 mg/dl BORDERLINE HIGH 160 - 189 mg/dl HIGH >190 mg/dl VERY HIGH Performed By: #### LAURA, CMADM #### [facility] [address] [place] [address] Dr. Daisha SharpeTriglyceride [Mass/Vol]74 mg/dLNormal<=150The [facility] Comment on above:Performed By: #### LAURA, CMADM #### [facility] [address] [place] [address] Dr. Daisha ArambulaLDL CALC14.8 mg/dLNoSelect Medical Specialty Hospital - Columbus SouthComment on above: Performed By: #### BMP, CMADM #### [facility] [address] [place] [address] Dr. Daisha Kaminski 14(COMP METB)on 67-29-6121Bfxngbw [Mass/Vol]3.6 g/dLNormal 3.4-5.0Corey HospitalComment on above:Performed By: #### LAURA, CMADM #### [facility] [address] [place] [address] Dr. Daisha SharpeAlbumin/Globulin [Mass ratio]1.1 {ratio}NormalThe [facility] HospitalComment on above:Performed By: #### LAURA, CMADM #### [facility] [address] [address] [address] Daisha AlmazanP [Catalytic activity/Vol]99 U/VLdntji50-754Iqs [facility] HospitalComment on above:Performed By: #### BMP, CMADM #### [facility] [address] [address] [address] Daisha AlmazanT [Catalytic activity/Vol]20 U/VBdhlzg50-09For [facility] HospitalComment on above:Performed By: #### LAURA, CMADM #### [facility] [address] [place] [address] Dr. Daisha Valenzuelaon gap [Moles/Vol]10.6 mmol/LNormalThe [facility] Comment on above:Performed By: #### BMP, CMADM #### [facility] [address] [address] [address] Daisha SharpeAST [Catalytic activity/Vol]9 U/LCritically bms85-39Pie [facility] HospitalComment on above:Performed By: #### LAURA, CMADM #### [facility] [address] [place] [address] Dr. Daisha SharpeBilirubin [Mass/Vol]0.8 mg/dLNormal0.2-1.0The [facility] Comment on above:Performed By: #### BMP, CMADM #### [facility] [address] [place] [address] Dr. Daisha SharpeCalcium [Mass/Vol]8.4 mg/dLCritically low8.5-10.1The [facility] HospitalComment on above:Performed By: #### BMP, CMADM #### [facility] [address] [place] [address] Dr. Daisha SharpeChloride [Moles/Vol]108 mmol/LCritically vuou36-341Cyd [facility] HospitalComment on above:Performed By: #### BMP, CMADM #### [facility] [address] [address] [address] Daisha SharpeCO2 [Moles/Vol]26.8 mmol/BFcbxts27.0-32.0The [facility] Comment on above:Performed By: #### BMP, CMADM #### [facility] [address] [address] [address] Daisha SharpeCreatinine [Mass/Vol]0.99 mg/dLNormal0.70-1.30The [facility] HospitalComment on above:Performed By: #### BMP, CMADM #### [facility] [address] [address] [address] Daisha CookGFR-AF STATELESS>60Normal>=60The [facility] HospitalComment on above:Performed By: #### BMP, CMADM #### [facility] [address] [address] [address] Daisha CookGFR-NON AF STATELESS>60Normal>=60The [facility] HospitalComment on above:Performed By: #### BMP, CMADM #### [facility] [address] [address] [address] Daisha SharpeGlobulin (S) [Mass/Vol]3.3 g/dLNormalThe [facility] HospitalComment on above:Performed By: #### BMP, CMADM #### [facility] [address] [address] [address] Daisha SharpeGlucose [Mass/Vol]99 mg/wNUhjyae46-961Lbv [facility] Comment on above:Performed By: #### BMP, CMADM #### [facility] [address] [address] [address] Daisha SharpePotassium [Moles/Vol]4.4 mmol/LNormal3.5-5.1The [facility] Comment on above:Performed By: #### BMP, CMADM #### [facility] [address] [address] [address] Daisha SharpeProtein [Mass/Vol]6.9 g/dLNormal6.4-8.2The [facility] Comment on above:Performed By: #### BMP, CMADM #### [facility] [address] [address] [address] Daisha SharpeSodium [Moles/Vol]141 mmol/CGqddyu168-574Sio [facility] Comment on above:Performed By: #### BMP, CMADM #### [facility] [address] [address] [address] Daisha SharpeUrea nitrogen [Mass/Vol]14.0 mg/dLNormal7.0-18.0The [facility] HospitalComment on above:Performed By: #### BMP, CMADM #### [facility] [address] [address] [address] Daisha SharpeUrea nitrogen/Creatinine [Mass ratio]14.1 mg/mgNoSelect Medical Specialty Hospital - Columbus SouthComment on above:Performed By: #### BMP, CMADM #### [facility] [address] [place] [address] Dr. Daisha Marie 71-01-2502JDI1.950 uIU/mLNormal0.358-3.740Corey HospitalComment on above:Performed By: #### LAURA, CMADM #### [facility] [address] [address] [address] [facility] BELOWUniversity Hospitals Conneaut Medical CenterComment on above: Result Comment: <0.34 UIU/ml HYPERTHYROID 0.34-5.60 UIU/ml EUTHYROID >5.60 UIU/ml HYPOTHYROIDPerformed By: #### BMP, CMADM #### [facility] [address] [place] [address] Dr. Daisha Sharpe Vital Signs Date TimeVital SignValuePerforming OwkptpvusCkmkgtiz13-31-2522 14:18-0500Body judlxx934.5 cmBenDuneNetworks Ball DO Work Phone: [facility]11-07-2025 14:18-0500 Body mass index (BMI) [Ratio]26.7 kg/x7Rtffanvo Ball DO Work Phone: [facility]11-07-2025 14:18-0500 Body .18 kgBenjamin Ball DO Work Phone: [phone] [place], [place] 3389011-07-2025 14:18-0500 Diastolic blood wluafxoe15 mm[Hg]Rick Ball DO Work Phone: [phone] [place], [place] 3389011-07-2025 14:18-0500 Heart rate71 /minBenjamin Ball DO Work Phone: [phone] [place], [place] 9306011-07-2025 14:18-0500 Respiratory rate12 /minBenjamin Ball DO Work Phone: [phone] [place], [place] 9306011-07-2025 14:18-0500 Systolic blood gbyhdzbg219 mm[Hg]Rick Ball DO Work Phone: [phone] [place], [place] 9306007-08-2025 09:22-0400 Body .5 cmBenjamin Ball DO Work Phone: [phone] [place], [place] 9306007-08-2025 09:22-0400 Body mass index (BMI) [Ratio]26.9 kg/o2Vdqoiwvs Ball DO Work Phone: [phone] [place], [place] 9306007-08-2025 09:22-0400 Body curyto78.63 kgBenjamin Ball DO Work Phone: [phone] [place], [place] 9306007-08-2025 09:22-0400 Diastolic blood taaqiaiq27 mm[Hg]Rick Ball DO Work Phone: [phone] [place], [place] 9306007-08-2025 09:22-0400 Heart rate64 /minBenjamin Ball DO Work Phone: [phone] [place], [place] 9306007-08-2025 09:22-0400 Respiratory rate12 /minBenjamin Ball DO Work Phone: [phone] [place], [place] 9306007-08-2025 09:22-0400 Systolic blood tmoymraa148 mm[Hg]Rick Ball DO Work Phone: [phone] [place], [place] 9306012-06-2023 14:30-0500 Body fsrwre314.5 cmBenjamin Ball Other [employer] Other 12-06-2023 14:30-0500Body mass index (BMI) [Ratio] 28.17 kg/m9Hdwfvtgx Ball Other [employer] Other 12-06-2023 14:30-0500Body cdacdc459.24 kgBenjamin Ball Other [employer] Other 12-06-2023 14:30-0500Diastolic blood cparqowv51 mm[Hg] Rick Ball Other [employer] Other 12-06-2023 14:30-0500Respiratory rate12 /minBenjamin Ball Other [employer] Other 12-06-2023 14:30-0500Systolic blood dcbuqxsr546 mm[Hg] Rick Ball Other [employer] Other 01-18-2023 14:30-0500Body wunzbr011.5 cmBenjamin Ball Other [employer] Other 01-18-2023 14:30-0500Body mass index (BMI) [Ratio] 28.32 kg/e5Qkerjyie Ball Other [employer] Other 01-18-2023 14:30-0500Body cinqlv967.79 kgBenjamin Ball Other [employer] Other 01-18-2023 14:30-0500Diastolic blood igifcokm77 mm[Hg] Rick Ball Other [employer] Other 01-18-2023 14:30-0500Respiratory rate12 /minBeneneida Hernandez Other [employer] Other 01-18-2023 14:30-0500Systolic blood enmaptta511 mm[Hg] Rick Hernandez Other [employer] Other Encounters Encounter DateEncounter TypeCare ProviderFacilityStart: 09-16-2025 End: 94-60-1756pgfhducviuNcqfyokx Ball DO Work Phone: -[facility] ClinicStart: 09-16-2025 End: 68-97-3662Ubdxyza encounter procedureBenjamin Ball DO-[facility] Work Phone: Start: 05-31-2025 End: 74-84-4023Qmzrwfx encounter procedureBenjasagar Hernandez DO-[facility] Work Phone: Start: 05-31-2025 End: 44-72-0567yfmnvsbiifIofcbxgg Ball DO Work Phone: [facility] Work Phone: Start: 05-17-2025 End: 82-82-2177otxshtjbnqLnywpxdv Ball DO Work Phone: [facility] Work Phone: Start: 05-17-2025 End: 04-63-4401Aogzjua encounter procedureBeneneida Ball DO-[facility] Work Phone: Start: 02-20-2024 End: 39-43-7097zyhrfoedyhUxovejgw Ball Other [facility] [employer] Other Start: 94-97-7992Brrykgjtb encounterBenjasagar BallFPG [facility] Medical ClinicStart: 10-27-2023 End: 98-77-4005aldudacurvNoorstat Ball Other [facility] [employer] Other Start: 86-66-1086Lrqtlpnqj encounterBenjamin BallFPG [facility] Medical ClinicStart: 10-24-2023 End: 67-70-9279ehyffvrhgbQlrvcyvu Ball Other [employer] Other Start: 81-76-4159Moiihqvsi encounterBenjamin BallFPG [facility] ClinicStart: 10-15-2023 End: 44-80-0517mfgribuvfkVmeiuyjx Ball Other [facility] [employer] Other Start: 56-91-6104Fnbehhpyu for general adult medical examination without abnormal findingsBenjamin BallFPG [facility] Medical ClinicStart: 13-67-8473Vvbtnqvf preventive med est patient 65yrs& olderBenjamin BallFPG [facility] ClinicStart: 08-13-2023 End: 78-88-5091iadotxfgkrRwsabidh Ball Other [facility] [employer] Other Start: 83-39-3074Zbminrfny encounterBenjamin BallFPG [facility] ClinicStart: 03-18-2023 End: 53-44-4446aqayxoxrnuVbbynzdg Ball Other [employer] Other Start: 31-71-2773Awnaxkgqt encounterBenjamin BallFPG Referral CoordinatorStart: 52-19-7166Atipuoubu encounterBenjamin BallFPG [facility] ClinicStart: 12-20-2022 End: 89-25-1572tnhwbhqmknHP RICK BALLFacility:X2Hywjh: 12-18-2022 End: 37-85-5679knujmvsdhoCbucyies Ball Other [employer] Other Start: 80-52-9430Vbuspyzwe encounterBenjamin BallFPG [facility] ClinicStart: 12-05-2022 End: 22-49-2051fwwnzevjwrNN RICK BALLFacility:V5Agffu: 11-27-2022 End: 49-21-8772tjxuvmlnfbNquhlgip Ball Other [employer] Other Start: 12-72-0272Bimqxf outpatient visit 15 minutes Rick HernandezFPDiana Hernandez Medical ClinicStart: 11-11-2022 End: 15-43-4691hwragvvqkkPD CRYSTAL GABRIELLEFacility:W7Mvwkq: 06-05-2022 End: 53-00-1359wmykpyuriqAPGMPS RODRIGUEZFacility:L8Luelk: 72-51-9948Ilyguahnm for general adult medical examination without abnormal findingsDR RICK HERNANDEZ [facility] Hospitaltart: 04-18-2022 End: 23-74-1063stexggngriZY RICK HERNANDEZFacility:O9Qvyby: 04-18-2022 End: 02-51-9988Iumhxwkkd for general adult medical examination without abnormal findingsDR RICK HERNANDEZFacility:C7Msxxs: 52-23-9366Zoyvs health examination Rick Hernandez Other [employer] Other Procedures DateProcedureProcedure DetailPerforming ClinicianStart: 36-53-4711Kbugxnaxw mammographyBeneneida Ball DO Work Phone: Start: 19-38-8134Arxpjovsomvkflc of right breast Rick Hernandez DO Work Phone: Start: 23-46-7904IA ribs RT min 3V w CXR1V*Rick Ball DO Work Phone: Start: 91-35-0003MN scapula LT*Rick Ball DO Work Phone: Start: 09-12-7155SRJ screeningDR CRYSTAL Acosta on above:Performed By: #### PSASC #### [facility] [address] [place] [address] Dr. Daisha SharpeStart: 77-88-3939Jhmnzwb examination of patientBeneneida Ball Other Start: 53-05-3912Pvzqu screeningBenjamin Ball Other Start: 35-81-3925Uusdpol of carotid endarterectomyH/O carotid endarterectomyBecharles Hernandez DOComment on above:Left CEA w/ dacron patch angioplastyStart: 73-37-0332Nmqhzebdi for malignant neoplasm of prostateRick Hernandez Other Depression screeningRick Hernandez Other Depression screeningRick Hernandez Other Screening for malignant neoplasm of prostateRick Hernandez Other Plan of Treatment DateCare ActivityDetailAuthorXR Chest 2 ViewsVeterans Health AdministrationXR Ribs - right ViewsVeterans Health AdministrationXR Scapula - left Views [facility] Immunizations Immunization DateImmunizationNotesCare [id number], tetanus toxoids and pertussis vaccineRick Hernandez Other [facility]11-20-2021COVID-19 Vaccine Vern - Documentation Purposes OnlyRick Hernandez Other [facility]02-03-2021COVID-19 Vaccine Pfizer - Documentation Purposes OnlyRick Hernandez Other [facility]11-30-2018 pneumococcal polysaccharide vaccine, 23 valentRick Hernandez Other [facility] Payers DatePayer CategoryPayerPolicy [id number] [id number] [id number] 2..[id number] [id number] 2..[id number] 2.0.[id number] 2..[id number] 2..1.435560.3.579.2.531 Social History DateTypeDetailFacilityUnknown if ever smokedNolee[facility] [employer] Other [facility] [employer] Other Start: 10-15-2023 End: [id number] smoking status NHISEx-smoker (finding)[facility] (finding)[facility] Hospitaltart: [id number] [facility] At [facility] Medical Equipment Procedure CodeEquipment CodeEquipment Original TextEquipment IdentifierDates Endarterectomy, carotidGRAFT PATCH [id number] X 3FDAStart: 10-29-2018 Endarterectomy, carotidGRAFT PATCH [id number] X 3FDAStart: 10-29-2018 Endarterectomy, carotidGRAFT PATCH [id number] X 3FDAStart: 10-29-2018 Clinical Notes 11-27-2022 to 05-31-2025 Note Date & JhncUrxnHdvurszv52-94-1948 Radiology Diagnostic [facility]REG[facility] [place] [id number] Ultrasound Report Signed Patient: Yamini Spence MR# : [id number] : 1950 Acct:[id number] Age/Sex: 74 / M ADM Date: 5 Loc: [place] Room: Type: REG CLI Attending Dr: Rick Hernandez DO Ordering Provider: Rick Hernandez DO Date of Service: 05/31/25 US/US breast RT limited: N63.11 - Unspecified lump inthe right breast, upper oute... ([id number]) MM/MM diagnostic mammo BI w/CAD: N63.11 - Unspecified lump in theright breast, upper oute... Copies to: Rick Hernandez DO~ CLINICAL DATA: Lump right breast Bilateral DIAGNOSTIC MAMMOGRAM - WITH TOMOSYNTHESIS AND CAD , rightLIMITED BREAST ULTRASOUND COMPARISON:None Tomosynthesis imaging was obtained using low-dose digital technique. This examination was reviewed with the aid of CAD. Additional ultrasound imaging was also obtained. Mammogram: The breasts are predominantly fatty in nature. No areas of architectural distortion, worrisome masses or suspicious microcalcifications. Ultrasound: In the area of lump at the 10:00 position of the right breast 3 cm from the nipple, no solid mass or cyst is noted. US/US breast RT limited IMPRESSION: NO MAMMOGRAPHIC OR ULTRASOUND EVIDENCE OF MALIGNANCY. THE PATIENT'S PALPABLE LUMP SHOULD BE HANDLEDON A CLINICAL BASIS. RESULT CODE: 1 Negative DENSITY CODE: 1 (<25% glandular) The breasts are almost entirely fatty. FOLLOW UP: 1YR The false-negative rate of mammography is approximately 10-percent. Management of a palpable abnormality must be based on clinical grounds. Impression dictated by: Elliot Velasquez Jr., Francisco JavierOGreta 05/31/2025 11:19 AM Dictation Location: [facility] Tech: Tracie Villarreal Transcribed By: MAGGIE 05/31/25 111 Dictated By: Elliot Velasquez Jr, DO 05/31/25 111 Signed By: 05/31/25 1119 [facility]07-08-2025 Evaluation note* Diagnosis Onset Date Resolution Status Admit Date Chest pain acuteJuly 2024 9:13amHypertensionacuteJuly 2024 9:13amNicotine addictionacuteJuly 2024 9:13amPain of left scapulaacuteJuly 2024 9:13am [facility] Work Phone: [phone] 702-199212-15-2023 Evaluation note* Encounter Date Diagnosis Assessment Notes Treatment Notes Treatment Clinical Notes Oct, Thyroid nodule (ICD-10 - E04.1) [facility] Other 12-06-2023 Evaluation note* Encounter Date Diagnosis Assessment Notes Treatment Notes Treatment Clinical Notes Oct, Wellness examination (ICD-10 - Z 00.00) Healthy diet and exercise. Reviewed age-appropriate preventive testing recommended. Oct,rimary hypertension (ICD-10 - I10)This patient is instructed to consume a healthy, low-fat, low-salt diet. They are also encouraged to continue exercise to achieve/maintain a normal BMI. Patient is instructed on home BP measurements: - rest for 5 minutes w/o talking- positioned w/ feeton floor and arm supported- average best 2/3 readings w/ goal < 135/85 _update office w/ results Oct,Hypercholesteremia (ICD-10 - E78.00)Instructed on diet and exercise with continued statin therapy.Discussed the beneficial effects of lowering cholesterol in reducing the risk for cerebrovascular and cardiovascular disease. Oct,Thyroid nodule (ICD-10 - E04.1)Clinically euthyroid, check TSH. Repeat thyroid US to document stability of nodules. TR4 solid nodule LLL thyroid measuring 2.7cm w/ FNA nondiagnostic Oct,Other chronic pain (ICD-10 - G89.29) Oct,ain in right shoulder (ICD-10 - M25.511)ROM restricted in rotation and abduction. Ice, heat, Tylenol and ROM exercises. XR Oct,Erectile dysfunction due to arterial insufficiency (ICD-10 - N52.01) Denies chest pain or palpitations. Requesting Cialis Oct,Screening PSA (prostate specific antigen) (ICD-10 - Z12.5)Yearly PSA [facility] Other 01-18-2023 Evaluation note* Encounter Date Diagnosis Assessment Notes Treatment Notes Treatment Clinical Notes Nov, Thyroid nodule (ICD-10 - E04.1) Explained that the next step is to check thyroid function labs and US. Need to determine TR score to determine if bx necessary or continue surveillance. Nov,Essential hypertension (ICD-10 - I10)This patient is instructed to consume a healthy, low-fat, low-salt diet. They are also encouraged to continue exercise to achieve/maintain a normal BMI. Nov,Vasovagal syncope (ICD-10 - R55)Symptoms appear to be vasovagal w/o s/s seizure or arrhythmias. CTA negative for PE. Holter to r/o bradycardia, tachycardia He has no s/s CP, palpitations or SOB during physical activity to suspect or CAD. Nov,Hyperlipidemia type II (ICD-10 - E78.01) Nov,Erectile dysfunction due to arterial insufficiency (ICD-10 - N52.01) [facility] Other Evaluation noteNo InformationNortConemaugh Miners Medical Center [facility] Other Evaluation note* Diagnosis Onset Date Resolution Status Admit Date Chest pain acuteJuly 2024 9:13amH/O carotid obwahuecwletxg7041jqrdaIwly 2024 9:13amHypercholesterolemiaacuteJuly 2024 9:13amHypertensionacuteJuly 2024 9:13amNicotine addictionacuteJuly 2024 9:13amNSVT (nonsustained ventricular tachycardia)acuteJuly 2024 9:13am [facility] Work Phone: Evaluation note* Diagnosis Onset Date Resolution Status Admit Date Hypertension acuteNovember 2024 1:58pmNicotine addictionacuteNovember 2024 1:58pm [facility] Work Phone: History general Narrative - Reported* Type Description Date Medical History Carotid stenosis, bilateral Medical HistoryBody mass index (BMI) of 25.0 to 29.9Medical HistoryDyspnea on exertionMedical HistoryDepression screeningMedical HistoryBenign prostatic hyperplasia with lower urinary tract symptoms, symptom details unspecified Medical HistoryNocturiaMedical HistoryHyperlipidemia type IIMedical History Essential hypertensionMedical HistoryFecal occult blood test positiveMedical HistoryLumbar spondylosisMedical HistorySwelling of right upper extremityMedical HistorySuperficial thrombophlebitis of left upper extremityMedical History Erectile dysfunction due to arterial insufficiencySurgical Historyhernia repair jonas.Surgical HistoryhemorrhoidectomySurgical HistoryLeft CEA with Dacron patch ywvmwcrwfvi59/16/2016Surgical Historycataract-lens /2017Surgical Historycataracts, aubglyonqcs55/2017Surgical HistoryCOLONOSCOPYSurgical History PSA10/2020Surgical HistoryFNA thyroid12/2022Hospitalization Historysee above [facility] Other Reason for referral (narrative)* Reason 02/25/23 Referral for syncope Diagnosis 1 Vasovagal syncope (R 55) Diagnosis 2 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 Spence is maribel flores referred for evaluation of syncope. This has occurred twice with symptoms suspicious for vasovagal syncope. His episodes were associated with surgical procedures, wearing and mask and symptoms of diaphoresis and lightheadedness. He denied chest pain, dyspnea, palpitations or spinning sensation. He denied seizure activity, tongue laceration or loss of bowel/bladder control. There was no postictal state. Anabella Montelongo 12/23/2022 02:53:00 PM >received today, notes locked, ECG, Labs, and Holter Results included. referral faxed to [phone] Anabella Montelongo 12/30/2022 10:52:59 AM >faxed first attempt letter Anabella Montelongo 01/06/2023 11:24:08 AM >faxed second attempt letter Anabella Montelongo 01/13/2023 02:38:51 PM >FAXED THIRD ATTEMPT LETTER. WILL CALL NEXTClinical NotesDrGreta Spence has experienced at least 2 syncopal episodes. He completed an echocardiogram within the past year demonstrating normal LVEF w/o findings of aortic or mitral stenosis. He recently completed a 72 hour holter, which revealed frequent ventricular ectopy w/o episodes of NSVT, sustained tachy cardia or bradycardia. He has a hx of carotid stenosis and hyperlipidemia. He is a former smoker and has had COVID in the past, which he recovered from without lingering symptoms. Please include his previous echocardiogram, holter monitor and labs obtained in the past 6wks. [facility] Other Reason for referral (narrative)No reason for referral information availableUniversity Hospitals [facility] Work Phone: Summary Purpose Family History Relationship Condition Age at Onset Recorded Date/T ronnie father Unknown HypertensionUnknownmotherDeceasedUnknownMalignant neoplasm of breastUnknown Malignant neoplasmUnknown Advance Directives Advance Directive Response Recorded Date/ Time Advance Directives No September 15, 2018 2:31pm Advance Directive Response Recorded Date/ Time Advance Directives No September 15, 2018 1:31pm Chief Complaint and Reason for Visit Chief Complaint Admit Date chest pain May 17, 2025 9:13a m Reason for Visit Admit Date Chest pain May 17, 2025 9:13a m H/O carotid endarterectomy May 17 9:13am Hypercholesterolemia May 17, 2025 9:13 am Hypertension May 17, 2025 9:13a m Nicotine addiction May 17, 2025 9:13a m NSVT (nonsustained ventricular tachycard ia) May 17, 2025 9:13am Chief Complaint Admit Date chest pain May 17, 2025 9:13a m N63.11 May 31, 2025 10:2 9am Reason for Visit Admit Date Chest pain May 17, 2025 9:13a m Hypertension May 17, 2025 9:13a m Nicotine addiction May 17, 2025 9:13a m Pain of left scapula May 17, 2025 9:13 am Chief Complaint Admit Date cough x 1 month September 16, 2025 1 :58pm Reason for Visit Admit Date Hypertension September 16, 2025 1 :58pm Nicotine addiction September 16, 2025 1 :58pm Additional Source Comments (unrecognized sect ion and content) No Status Records FoundNo Status Records Found INFORMATION SOURCE (unrecogn ized section and content) DATE CREATED AUTHOR 12/26/2022 [facility] DATE CREATED AUTHOR AUTHOR'S ORGANIZ ATION 06/01/2025 [facility] REASON FOR VISIT (unrecogniz ed section and content) was in [facility] ERNo InformationH olter MonitorNo InformationHolter ResultsCARDIO REFERRAL NOTEThyroid UltrasoundWellnessNo InformationLab resultsXR results/thyroid resultsNo Information Care Teams (unrecognized sec tion and content) Team Status: Active Member Role Status Dates Rick Hernandez DO Primary Care Provider Active Team Status: Inactive Member Role Status Dates Rick Hernandez , Primary Care Provider Active Start: May 17, 2025 End: May 17ina Hernandez , DOAttending ProviderActiveStart: May 17, 2025 End: May 17, 2025 Team Status: Inactive Member Role Status Dates Rick Hernandez , Primary Care Provider Active Start: May 31, 2025 End: May 31ina Hernandez , DOAttending ProviderActiveStart: May 31, 2025 End: May 31, 2025 Team Status: Active Member Role/Relationship Status Dates Rick Hernandez DO Primary Care Provider Active Team Status: Inactive Member Role/Relationship Status Dates Rick Hernandez DO Primary Care Provider Active Start: September 16, 2025 End: September 16eneneida Hernandez , DOAttending ProviderActiveStart: September 16, 2025 End: September 16, 2025 Goals (unrecognized section and content) Goals may be documented in a n alternate section FOR RECORDS PERTAINING TO PATIENTS WHO ARE OR HAVE BEEN ENROLLED IN A CHEMICAL DEPENDENCY/SUBSTANCEABUSE PROGRAM, SOME INFORMATION MAY BE OMITTED. This clinical summary was aggregated from multiple sources. Caution should be exercised in using it in the provision of clinical care. This summary normalizes information from multiple sources, and as a consequence, information in this document may materially change the coding, format and clinical context of patient data. In addition, data may be omitted in some cases. CLINICAL DECISIONS SHOULD BE BASED ON THE PRIMARY CLINICAL RECORDS. [employer] [facility]. provides no warranty or guarantee of the accuracy or completeness of information in this document.
== END 2025-09-16 15:04 | disposition home or self-care (01) ==
LOC: RAD 15:04
PROVIDERS: PCP Internal Medicine; Visit Provider Internal Medicine
DX: R05.3 Chronic cough (principal)
CPT/HCPCS: 71046